=== PATIENT | male | born 1945 | race Hispanic/Latino ===

== ENCOUNTER → 2021-04-11 | Outpatient (CLI) | payer OTHER, MEDICARE | END | disposition home or self-care (01) | LOC: RAH 10:38 | PROVIDERS: ATTEND Family Medicine | DX: M48.062 Spinal stenosis, lumbar region with neurogenic claudication (principal); M47.26 Other spondylosis with radiculopathy, lumbar region; M43.5X6 Other recurrent vertebral dislocation, lumbar region | CPT/HCPCS: 72148 ==

== ENCOUNTER 2021-11-20 10:18 | Emergency (ER) | payer OTHER, MEDICARE ==
[~2021-11-20] VITALS: Ht 165.1 cm; Wt 97.5 kg
[2021-11-20] MEDS ORDERED: OSEL75 PO (11:22)
[2021-11-20] MEDS ORDERED: ACET-66 PO (11:22)
[2021-11-20 11:36] VITALS: BP 122/78
== END 2021-11-20 11:35 | disposition home or self-care (01) ==
LOC: EDH 10:18
DX: J10.1 Influenza due to other identified influenza virus with other respiratory manifestations (principal); Z20.822 Contact with and (suspected) exposure to COVID-19; E11.9 Type 2 diabetes mellitus without complications; E78.00 Pure hypercholesterolemia, unspecified; I10 Essential (primary) hypertension; I25.2 Old myocardial infarction
CPT/HCPCS: 99284; 71045; 87635; 87804 ×2; C9803

== ENCOUNTER 2022-02-19 12:05 | Emergency (ER) | payer OTHER, MEDICARE ==
[~2022-02-19] VITALS: Ht 165.1 cm; Wt 99.8 kg
[~2022-02-19 12:05] MED LIST: ACET-66 PO; OSEL75 PO
[2022-02-19] MEDS ORDERED: IBUPROFEN 600 MG TABLET PO ONE (13:00)
[2022-02-19] MEDS ORDERED: ACET-66 PO (14:14)
[2022-02-19 14:19] VITALS: BP 123/71
== END 2022-02-19 14:30 | disposition home or self-care (01) ==
LOC: EDH 12:05
DX: S93.402A Sprain of unspecified ligament of left ankle, initial encounter (principal); F41.9 Anxiety disorder, unspecified; I25.10 Atherosclerotic heart disease of native coronary artery without angina pectoris; E11.9 Type 2 diabetes mellitus without complications; I10 Essential (primary) hypertension; E03.9 Hypothyroidism, unspecified; I21.9 Acute myocardial infarction, unspecified; Z98.890 Other specified postprocedural states; W01.0XXA Fall on same level from slipping, tripping and stumbling without subsequent striking against object, initial encounter; Y93.01 Activity, walking, marching and hiking; Y92.098 Other place in other non-institutional residence as the place of occurrence of the external cause; Y99.8 Other external cause status
CPT/HCPCS: 73590; 73610

== ENCOUNTER → 2023-06-30 | Outpatient (CLI) | payer OTHER, MEDICARE ==
[2023-06-30] MEDS: REGADENOSON 0.4 MG/5 ML PF SYG IVP ONE (15:13)
== END | disposition home or self-care (01) ==
LOC: SHCH 08:35
PROVIDERS: ATTEND Internal Medicine Cardiovascular Disease
DX: I45.10 Unspecified right bundle-branch block (principal); I25.119 Atherosclerotic heart disease of native coronary artery with unspecified angina pectoris
CPT/HCPCS: 78452; 96374; 93017; J2785; A9500 ×2

== ENCOUNTER → 2023-07-24 | Outpatient (CLI) | payer OTHER, MEDICARE ==
[2023-07-24 12:20] LABS: BASOPHILS # (AUTO) 0.06 K/uL (0.00-0.20); BASOPHILS % (AUTO) 0.9 % (0.0-5.0); EOSINOPHILS # (AUTO) 0.23 K/uL (0.00-0.70); EOSINOPHILS % (AUTO) 3.6 % (0.0-8.0); HEMATOCRIT 39.5 % (42-54); IMMATURE GRANULOCYTE ABSOLUTE 0.01 K/uL (0-1); LYMPHOCYTES # (AUTO) 1.6 K/uL (1.0-4.8); LYMPHOCYTES % (AUTO) 25.8 % (21.0-51.0); MEAN CORPUSCULAR HEMOGLOBIN 32.1 pg (27.0-33.0); MEAN CORPUSCULAR HGB CONC 34.4 g/dL (32.0-36.0); MEAN CORPUSCULAR VOLUME 93.2 fL (79-99); MONOCYTES # (AUTO) 0.5 K/uL (0.1-1.0); MONOCYTES % (AUTO) 7.7 % (3.0-13.0); NEUTROPHILS # (AUTO) 3.9 K/uL (1.8-7.7); NEUTROPHILS % (AUTO) 61.8 % (40.0-77.0); PLATELET COUNT (AUTO) 113 K/uL (130-400); RED BLOOD CELL COUNT(AUTO) 4.24 MIL/uL (4.50-6.20); RED CELL DISTRIBUTION WIDTH 13.1 % (11.0-15.5); WHITE BLOOD COUNT (AUTO) 6.4 K/uL (4.8-10.8)
== END | disposition home or self-care (01) ==
LOC: LAB 10:20
PROVIDERS: ATTEND Internal Medicine Cardiovascular Disease
DX: D69.6 Thrombocytopenia, unspecified (principal)
CPT/HCPCS: 36415; 85025

== ENCOUNTER 2024-01-14 14:00 | Emergency (ER) | payer OTHER, MEDICARE ==
[~2024-01-14] VITALS: Ht 165.1 cm; Wt 98.4 kg
--- NOTE | 2024-01-14 14:21 | ERN ---
ED Note History of Present Illness Stated Complaint: ANXIETY ATTACK Chief Complaint: Anxiety/Panic Attack Time Seen by MD: 14:16 Dictation: PATIENT IS A 78-YEAR-OLD MALE HERE WITH A KNOWN HISTORY OF HYPERTENSION CHOLESTEROL CAD COMPLAINING OF ANXIETY RESOLVED CHEST PAIN HE HAD EARLIER THIS MORNING AND SHORTNESS A BREATH. PER EMS THEY [id number] OF ASPIRIN PATIENT WAS SATTING 90% ON ROOM AIR, NOW SATTING 95 96% ON2 L PER NASAL CANNULA. PATIENT STATES HE HAS NO PAIN AT THIS TIME. STATES HE HAS HAD TWO PRIOR MIS, IS PENDING A HEART CATHETERIZATION BY DR. CHAVEZ IN JANUARY. Allergies: Coded Allergies: No Known Allergies (Unverified Allergy, Unknown, 11/20/21) Home Meds Active Scripts Acetaminophen (Tylenol) 500 Mg Tab, 500 MG PO Q4PRN PRN for PAIN, #30 TAB Prov:DIMITRIS RUBY 02/19/22 Acetaminophen (Tylenol) 500 Mg Tab, 500 MG PO Q6HPRN PRN for pain/fever for 5 Days, #30 TAB Prov:MARTHA ORTIZ MD 11/20/21 Oseltamivir Phosphate (Tamiflu) 75 Mg Cap, 75 MG PO BID for 5 Days, #10 CAP Prov:MARTHA ORTIZ MD 11/20/21 Past Medical History Past Medical History: Diabetes-Type II, High Cholesterol, Heart Disease, [place] Additional Past Medical Hx: THYROID DISEASE, Surgical History: Other Surgical History Other: THYROIDECTOMY AND PENILE SURGERY Family History: CAD Social History: Negative RN Note Reviewed/Agreed w/PFSH: Yes Review of System Dictation CONSTITUTIONAL: NEGATIVE EXCEPT FOR HPI HEAD/FACE: NEGATIVE EXCEPT FOR HPI EENT: NEGATIVE EXCEPT FOR HPI RESPIRATORY: NEGATIVE EXCEPT FOR HPI SHORTNESS A BREATH/CHEST PAIN GASTROINTESTINAL/ABDOMINAL: NEGATIVE EXCEPT FOR HPI GENITOURINARY: NEGATIVE EXCEPT FOR HPI MUSCULOSKELETAL: NEGATIVE EXCEPT FOR HPI INTEGUMENTARY: NEGATIVE EXCEPT FOR HPI NEUROLOGICAL/PSYCH: NEGATIVE EXCEPT FOR HPI HEMATOLOGIC/LYMPHATIC: NEGATIVE EXCEPT FOR HPI ALL SYSTEMS NEGATIVE, EXCEPT NOTED ABOVE. 13 POINT REVIEW OF SYSTEMS ASSESSED AND ALL NEGATIVE EXCEPT FOR ABOVE. Initial Vital Sign VS Vital Signs Date Time Temp Pulse Resp B/P (MAP) Pulse Ox O2 Delivery O2 Flow Rate FiO2 01/14/24 14:09 97.5 71 18 95/55 98 Nasal Cannula 2.0 01/14/24 16:35 21 Physical Exam Dictation VITAL SIGNS REVIEWED GENERAL APPEARANCE: ALERT, ORIENTED X 3, MILD ACUTE DISTRESS, WELL DEVELOPED, NOURISHED. HEAD AND FACE: NON-TRAUMATIC. EYES: PERRL, PINK CONJUNCTIVAS, EYELID NO TRAUMA, ANTERIOR CHAMBER WITH ARCUS SENILIS. EARS: PINNAS INTACT AND NO SIGNS OF TRAUMA OR ERYTHEMA EAR CANALS CLEAR AND NO DISCHARGE TM NO ERYTHEMA NOSE: NO DISCHARGE, NO BLEEDING. OROPHARYNX: MOUTH NORMAL, TONGUE PINK, PHARYNX CLEAR,NO ERYTHEMA, TONSILS NO EXUDATES, NO ABSCESSES NOTED, MUCOUS MEMBRANE MOIST NECK: SUPPLE, NON-TENDER, NO THYROMEGALY, NO MASSES, NO JVD, NO BRUITS BREAST:DEFERRED CHEST:NO TENDERNESS, NO CREPITUS, NO PARADOXICAL MOVEMENT, NO RETRACTIONS LUNGS:CLEAR, WELL-VENTILATED, SYMMETRIC, NO RALES, NO WHEEZING, NO RHONCHI, NO STRIDOR, GOOD BREATH SOUNDS BILATERALLY HEART: TRACE PERIPHERAL EDEMA LOWER EXTREMITIES TO ANKLE PERIPHERAL EDEMA, ABDOMEN: SOFT, POSITIVE BOWEL SOUNDS, NONDISTENDED, NO GUARDING, NONTENDER, NO REBOUND, NO MASSES NO HEPATOMEGALY, NO SPLENOMEGALY, NO PICKARD'S SIGN, NO HERNIAS. RECTAL: DEFERRED GENITAL: DEFERRED NEUROLOGICAL: NORMAL SPEECH, MOTOR FUNCTION INTACT, SENSORY FUNCTION INTACT MUSCULOSKELETAL: NECK NONTENDER, FULL RANGE OF MOTION, BACK NONTENDER, FULL RANGE OF MOTION, EXTREMITIES: NONTENDER, FULL RANGE OF MOTION SKIN: COLOR PINK, DRY, NO TURGOR, NO RASH, NO LACERATIONS, NO ABRASIONS, NO CONTUSIONS. LYMPHATIC: DEFERRED Results (Laboratory/Radiology) Laboratory/Radiology Laboratory Tests Test 01/14/24 14:33 01/14/24 15:24 SARS-CoV-2 Antigen (Rapid) PRESUMPTIVE NEGATIVE White Blood Count 8.4 K/uL (4.8-10.8) Red Blood Count 4.10 MIL/uL (4.50-6.20) L Hemoglobin 13.2 g/dL (14.0-18.0) L Hematocrit 38.3 % (42-54) L Mean Corpuscular Volume 93.4 fL (79-99) Mean Corpuscular Hemoglobin 32.2 pg (27.0-33.0) Mean Corpuscular Hemoglobin Concent 34.5 g/dL (32.0-36.0) Red Cell Distribution Width 13.2 % (11.0-15.5) Platelet Count 95 K/uL (130-400) L Mean Platelet Volume 11.5 fL (7.5-10.5) H Immature Granulocyte % (Auto) 0.4 % (0-1) Neutrophils (%) (Auto) 70.2 % (40.0-77.0) Lymphocytes (%) (Auto) 18.5 % (21.0-51.0) L Monocytes (%) (Auto) 9.0 % (3.0-13.0) Eosinophils (%) (Auto) 1.3 % (0.0-8.0) Basophils (%) (Auto) 0.6 % (0.0-5.0) Neutrophils # (Auto) 5.9 K/uL (1.8-7.7) Lymphocytes # (Auto) 1.6 K/uL (1.0-4.8) Monocytes # (Auto) 0.8 K/uL (0.1-1.0) Eosinophils # (Auto) 0.11 K/uL (0.00-0.70) Basophils # (Auto) 0.05 K/uL (0.00-0.20) Absolute Immature Granulocyte (auto 0.03 K/uL (0-1) Nucleated Red Blood Cells 0.0 % (0.0-0.19) Sodium Level 138 mmol/L (136-145) Potassium Level 3.5 mmol/L (3.5-5.1) Chloride Level 103 mmol/L (101-111) Carbon Dioxide Level 29 mmol/L (21-32) Blood Urea Nitrogen 16 mg/dL (7-18) Creatinine 1.2 mg/dL (0.5-1.3) Glomerular Filtration Rate Calc 62 mL/min (>90) Random Glucose 100 mg/dL (70-105) Total Calcium 8.4 mg/dL (8.5-10.1) L Magnesium Level 2.10 mg/dL (1.80-2.40) Troponin I High Sensitivity 23 ng/L (4-75) B-Type Natriuretic Peptide 17 pg/mL (0-100) CHEST 1VW REASON: SHORTNESS A BREATH COMPARISON: 11/20/2021 FINDINGS: Single view of the chest was obtained. Lungs are clear. Heart size is normal. There is no pulmonary vascular congestion. Mediastinum and bony thorax appear unremarkable. IMPRESSION: 1. Normal single view chest x-ray. Labs Reviewed?: Yes EKG Comment: SINUS RHYTHM/RIGHT BUNDLE BRANCH BLOCK/AXIS NORMAL/NO ECTOPY ED Course ED Course Orders Procedure Category Date Status Time Covid19 (Sars Antigen LAB 01/14/24 Complete Rapid) 14:19 Cbc With Differential LAB 01/14/24 Complete 14:19 B-Type Natriuretic LAB 01/14/24 Complete Peptide 14:19 Chest 1vw RAD 01/14/24 Resulted 14:19 12 Lead Ekg Tracing- EKG 01/14/24 Logged Technical 14:19 Magnesium LAB 01/14/24 Complete 14:19 Troponin I High LAB 01/14/24 Complete Sensitivity 14:19 Basic Metabolic Panel LAB 01/14/24 Complete 14:19 Vital Signs Date Time Temp Pulse Resp B/P (MAP) Pulse Ox O2 Delivery O2 Flow Rate FiO2 01/14/24 16:35 98.1 60 18 96/48 97 Room Air* 0 21 01/14/24 14:09 97.5 71 18 95/55 98 Nasal Cannula 2.0 1725, CARDIAC WORKUP IS NEGATIVE, CHEST X-RAY NEGATIVE. WE WILL DISCHARGE PATIENT HOME WITH A ANXIETY REACTION TOLD TO FOLLOW UP WITH HIS DOCTOR IN 1-2 HEART Score Response (Comments) Value Age: > 65yrs (+2) 2 Risk Factors: 1-2 risk factors (+1) 1 Initial Troponin: Normal limit (0) 0 Total 3 Medical Decision Making MDM MDM: DIFFERENTIAL DIAGNOSIS: ACS/AMI/PANIC ATTACK/ANXIETY/PNEUMONIA/BRONCHITIS RATIONALE: TESTS CONSIDERED AND ORDERED SECONDARY TO SHARED DECISION MAKING INCLUDE: EKG/LABS/RADIOLOGY PREVIOUS OUTSIDE RECORDS REVIEWED: OLD ER VISITS. NONE RISK OF COMPLICATION AND/OR MORBIDITY OR MORTALITY OF PATIENT MANAGEMENT: NONE NONE MEDICATIONS-PER MEDICATION RECONCILIATION NEED FOR HOSPITALIZATION: PATIENT DOES NOT MEET CRITERIA FOR HOSPITALIZATION. NO NEED FOR EMERGENCY MAJOR/MINOR SURGERY: NO THERE ARE NO SOCIAL CONCERNS WITH THIS PATIENT. PRESCRIPTION DRUG MANAGEMENT NONE PRESCRIPTIONS WILL INCLUDE SYMPTOMATIC CARE PATIENT'S PRIOR EXTERNAL MEDICAL RECORDS FROM OTHER ER VISITS WERE REVIEWED BY ME INDICATED. PRIOR TESTING AND RESULTS FROM PREVIOUS VISITS WERE REVIEWED. PRIOR TESTS WERE TAKEN INTO ACCOUNT WITH MEDICAL DECISION MAKING AND RESOURCE UTILIZATION, INDEPENDENT HISTORIAN/HISTORIANS WERE USED TO OBTAIN COMPLETE MEDICAL HISTORY. I INDEPENDENTLY INTERPRETED THE TEST THAT WERE PERFORMED, RESULTS WERE REVIEWED BY ME AND CONSIDERED FINDINGS ON RADIOLOGY IF ORDERED. MEDICAL MANAGEMENT AND EXAMINATION INTERPRETATION DISCUSSIONS WERE HAD BY ME WITH OTHER QUALIFIED HEALTHCARE PROFESSIONALS INDICATED FOR THE PATIENT'S CARE. DX & DISP Disposition: Discharge Departure Impression: Primary Impression: Panic attack Condition: Stable Additional Instructions: FOLLOW-UP WITH PRIMARY CARE PROVIDER IN 1 TO 2 DAYS. TAKE MEDICATIONS DIRECTED HERE IN THE EMERGENCY ROOM. OKAY TO CONTINUE HOME MEDICATIONS UNLESS OTHERWISE DISCUSSED DURING YOUR VISIT IN THE EMERGENCY ROOM TODAY. RETURN TO YOUR NEAREST EMERGENCY ROOM IF SYMPTOMS WORSEN OR IF THERE IS NO IMPROVEMENT. CALL 911 IF YOU NEED IMMEDIATE ASSISTANCE. TAKE TYLENOL OR MOTRIN AMMG-SOD-DSJOZTS NEEDED AND IF NO CONTRAINDICATIONS ARE PRESENT. INCREASE ORAL HYDRATION. A WOUND CULTURE OR URINE CULTURE WAS ORDERED HERE IN THE EMERGENCY ROOM DEPARTMENT PLEASE FOLLOW-UP WITH PRIMARY CARE PROVIDER AND ADVISE THEM TO GET REPEAT PORTS FROM OUR FACILITY. IF YOU HAD ANY AURY WRAP/SPLINTS THAT WERE APPLIED HERE, PLEASE DO NOT REMOVE THEM UNTIL YOU SEE YOUR PRIMARY CARE OR SPECIALTY. CONTINUE ALL MEDICATIONS AND TREATMENTS AT HOME, SEE YOUR PRIMARY CARE DOCTOR FOR FOLLOW UP IN 1-2 DAYS. Referrals: YISEL ROBERTSON MD (PCP) Time of Disposition: 17:23 I have reviewed the case, and I agree with, Diagnosis and Plan MARYSOL ROLON NP Jan 14, 2024 14:21
[2024-01-14 15:32] LABS: BASOPHILS # (AUTO) 0.05 K/uL (0.00-0.20); BASOPHILS % (AUTO) 0.6 % (0.0-5.0); EOSINOPHILS # (AUTO) 0.11 K/uL (0.00-0.70); EOSINOPHILS % (AUTO) 1.3 % (0.0-8.0); HEMATOCRIT 38.3 % (42-54); IMMATURE GRANULOCYTE ABSOLUTE 0.03 K/uL (0-1); LYMPHOCYTES # (AUTO) 1.6 K/uL (1.0-4.8); LYMPHOCYTES % (AUTO) 18.5 % (21.0-51.0); MEAN CORPUSCULAR HEMOGLOBIN 32.2 pg (27.0-33.0); MEAN CORPUSCULAR HGB CONC 34.5 g/dL (32.0-36.0); MEAN CORPUSCULAR VOLUME 93.4 fL (79-99); MONOCYTES # (AUTO) 0.8 K/uL (0.1-1.0); NEUTROPHILS # (AUTO) 5.9 K/uL (1.8-7.7); NEUTROPHILS % (AUTO) 70.2 % (40.0-77.0); PLATELET COUNT (AUTO) 95 K/uL (130-400); RED CELL DISTRIBUTION WIDTH 13.2 % (11.0-15.5); WHITE BLOOD COUNT (AUTO) 8.4 K/uL (4.8-10.8)
[2024-01-14 15:41] LABS: CREATININE 1.2 mg/dL (0.5-1.3); POTASSIUM 3.5 mmol/L (3.5-5.1)
[2024-01-14 15:51] LABS: MAGNESIUM 2.1 mg/dL (1.80-2.40)
[2024-01-14 16:01] LABS: B-TYPE NATRIURETIC PEPTIDE 17 pg/mL (0-100)
--- NOTE | 2024-01-14 16:10 | HMCIMG ---
CHEST 1VW REASON: SHORTNESS A BREATH COMPARISON: 11/20/2021 FINDINGS: Single view of the chest was obtained. Lungs are clear. Heart size is normal. There is no pulmonary vascular congestion. Mediastinum and bony thorax appear unremarkable. IMPRESSION: 1. Normal single view chest x-ray.
[2024-01-14 17:50] VITALS: BP 96/48; PULSE 64; RESP 18; TEMP 98.1; O2SAT 95
--- NOTE | 2024-01-15 05:35 | EKG ---
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
== END 2024-01-14 18:05 | disposition home or self-care (01) ==
LOC: EDH 14:00
DX: F41.0 Panic disorder [episodic paroxysmal anxiety] (principal); E11.9 Type 2 diabetes mellitus without complications; E78.00 Pure hypercholesterolemia, unspecified; Z20.822 Contact with and (suspected) exposure to COVID-19; Z79.899 Other long term (current) drug therapy; Z90.89 Acquired absence of other organs; Z98.890 Other specified postprocedural states
CPT/HCPCS: 36415; 71045; 80048; 83735; 83880; 84484; 85025; 87426; 93005; 99285

== ENCOUNTER 2024-05-23 20:29 | Observation (INO) | payer OTHER, MEDICARE ==
[~2024-05-23] VITALS: Ht 165.1 cm; Wt 90.5 kg
[~2024-05-23 20:29] MED LIST changes: -ACET-66 PO; +CITA-108 PO; +ISOS60TA77 PO; +LEVO75CA6 PO; +LOSA1TAB54 PO; -OSEL75 PO; +ROSU10TA72 PO; +TAMS-55 PO
--- NOTE | 2024-05-23 20:50 | ERN ---
ED Note History of Present Illness Stated Complaint: CHEST PAIN Chief Complaint: Chest Pain Time Seen by MD: 20:37 Dictation: This is a 78-year-old male who presented to the emergency room complaining of left-sided chest pain that started around 2:00 p.m. today the pain radiates to t he neck jaw and back. He stated that it felt like cardiac pain to him and hence he came in for evaluation. No diaphoresis or syncope. Son at bedside during my evaluation Temperature 97.8 pulse 58 respirations 18 blood pressure 148/72 with a pulse oximetry of 97% on room air His chronic medical problems include diabetes mellitus, hypertension, hyperlipidemia, coronary artery disease status post stent placements, history of thyroid disease status post thyroidectomy Left heart catheterization-01/21/2024 Predominantly nonobstructive coronary disease with the exception of an 80% apical LAD stenosis. Moderate 60% mid LAD stenosis. 40% ostial nondominant left circumflex stenosis. 50% proximal RCA stenosis and 40% mid RCA stenosis, with 40% ostial PDA and posterolateral segment branch stenoses. Allergies: Coded Allergies: No Known Allergies (Unverified Allergy, Unknown, 11/20/21) Home Meds Active Scripts Losartan/Hydrochlorothiazide (Losartan-Hctz 100-25 mg Tab) 100 Mg-25 Mg Tablet, 0.5 TAB PO DAILY for 30 Days, #30 TAB 0 Refills Prov:CHHAYA ÁLVAREZ NAILER HAND 01/21/24 Reported Medications Citalopram Hydrobromide (Citalopram HBr) 40 Mg Tablet, 1 TAB PO DAILY for 30 Days, #30 TAB 0 Refills 01/20/24 Levothyroxine Sodium (Levothyroxine) 75 Mcg Capsule, 1 TAB PO DAILY for 30 Days, #30 CAP 0 Refills 01/20/24 Isosorbide Mononitrate (Isosorbide Mononitrate ER) 60 Mg Tab.er.24h, 1 TAB PO DAILY for 30 Days, #30 TAB 0 Refills 01/20/24 Rosuvastatin Calcium (Rosuvastatin Calcium) 10 Mg Tablet, 20 MG PO DAILY, TAB 01/20/24 Tamsulosin HCl (Flomax) 0.4 Mg Cap.er.24h, 1 CAP PO DAILY for 30 Days, #30 CAP 0 Refills 01/20/24 Past Medical History Past Medical History: Diabetes-Type II, High Cholesterol, Heart Disease, [place] Additional Past Medical Hx: THYROID DISEASE, Surgical History: Other Surgical History Other: THYROIDECTOMY AND PENILE SURGERY, CARDIAC STENTS Family History: CAD Social History: Negative RN Note Reviewed/Agreed w/PFSH: Yes Review of System Dictation Constitutional: Negative for fever,chills, and weight loss Eyes: Negative for injury, pain,redness, and discharge ENT: Negative for injury,pain or swelling Cardiovascular: Positive for chest pain, denies palpitations, and edema Respiratory: Positive for shortness of breath, denied cough, and wheezing, Abdomen/GI: Negative for abdominal pain, nausea, vomiting, diarrhea, and constipation Back: Negative for injury and pain : Negative for injury, bleeding and discharge MS/Extremity: Negative for injury and deformity Skin: Negative for rash, and discoloration Neuro: Negative for headache, weakness, numbness, tingling, and seizure Psych: Negative for suicide ideation, homicidal ideation, and hallucinations Initial Vital Sign VS Vital Signs Date Time Temp Pulse Resp B/P (MAP) Pulse Ox O2 Delivery O2 Flow Rate FiO2 05/23/24 20:31 97.9 58 18 148/72 97 Room Air 05/23/24 21:47 0 21 Physical Exam Dictation General: awake, alert, NAD hard of hearing Head/Face: Normocephalic, atraumatic Eyes: PERRL, EOMI, vision at baseline ENT: oral cavity clear, TMs clear, no signs of infection Neck: Trachea midline, supple, no nuchal rigidity Cardiovascular: RRR, normal S1/S2, No MRGs, no JVD Respiratory: CTAB, no respiratory distress, No rales or wheezes Abdomen: Soft, non-tender, non-distended, normal bowel sounds, no guarding or rebound. Skin: Warm, dry, normal turgor, no rash MS/Extremity: Pulses equal, no cyanosis, neurovascular intact, FROM Neuro: COAx4, GCS 15, strength 5/5, CN 2-12 intact, normal cerebellar exam, normal gait, Psych: Normal behavior, mood, and affect normal Extremities-trace edema without any palpable cords, Homans sign is negative Results (Laboratory/Radiology) Laboratory/Radiology Laboratory Tests Test 05/23/24 20:45 White Blood Count 7.2 K/uL (4.8-10.8) Red Blood Count 4.02 MIL/uL (4.50-6.20) L Hemoglobin 13.0 g/dL (14.0-18.0) L Hematocrit 38.4 % (42-54) L Mean Corpuscular Volume 95.5 fL (79-99) Mean Corpuscular Hemoglobin 32.3 pg (27.0-33.0) Mean Corpuscular Hemoglobin Concent 33.9 g/dL (32.0-36.0) Red Cell Distribution Width 12.5 % (11.0-15.5) Platelet Count 103 K/uL (130-400) L Mean Platelet Volume 11.4 fL (7.5-10.5) H Immature Granulocyte % (Auto) 0.6 % (0-1) Neutrophils (%) (Auto) 60.0 % (40.0-77.0) Lymphocytes (%) (Auto) 24.9 % (21.0-51.0) Monocytes (%) (Auto) 9.5 % (3.0-13.0) Eosinophils (%) (Auto) 4.2 % (0.0-8.0) Basophils (%) (Auto) 0.8 % (0.0-5.0) Neutrophils # (Auto) 4.3 K/uL (1.8-7.7) Lymphocytes # (Auto) 1.8 K/uL (1.0-4.8) Monocytes # (Auto) 0.7 K/uL (0.1-1.0) Eosinophils # (Auto) 0.30 K/uL (0.00-0.70) Basophils # (Auto) 0.06 K/uL (0.00-0.20) Absolute Immature Granulocyte (auto 0.04 K/uL (0-1) Nucleated Red Blood Cells 0.0 % (0.0-0.19) Sodium Level 143 mmol/L (136-145) Potassium Level 3.7 mmol/L (3.5-5.1) Chloride Level 107 mmol/L (101-111) Carbon Dioxide Level 27 mmol/L (21-32) Blood Urea Nitrogen 12 mg/dL (7-18) Creatinine 0.7 mg/dL (0.5-1.3) Glomerular Filtration Rate Calc 95 mL/min (>90) Random Glucose 102 mg/dL (70-105) Total Calcium 7.7 mg/dL (8.5-10.1) L Total Creatine Kinase 201 U/L (21-232) Troponin I High Sensitivity 32 ng/L (4-75) B-Type Natriuretic Peptide 104 pg/mL (0-100) H Labs Reviewed?: Yes EKG Comment: Twelve lead EKG done on 05/23/2024 at 8:35 p.m. showed a heart rate of 57, LA interval 177, QRS 135, QT/QTC 461/451 Impression normal sinus rhythm-sinus bradycardia right bundle branch block intraventricular conduction delay no acute STT elevations noted. Interpreted by ER MD Dr. Valentin ED Course ED Course Orders Procedure Category Date Status Time Vital Signs Per CPOE 05/23/24 Transmitted Routine 20:35 B-Type Natriuretic LAB 05/23/24 Complete Peptide 20:35 Chest 1vw RAD 05/23/24 Resulted 20:35 12 Lead Ekg Tracing- EKG 05/23/24 Logged Technical 20:35 Oxygen By Nc/Pulse Ox CPOE 05/23/24 Transmitted 20:35 Maintain Iv CPOE 05/23/24 Transmitted 20:35 Iv Insertion CPOE 05/23/24 Transmitted 20:35 Cardiac Monitoring CPOE 05/23/24 Transmitted 20:35 Pulse Oximetry With CPOE 05/23/24 Transmitted Vs And Prn 20:35 Cbc With Differential LAB 05/23/24 Complete 20:35 Activity: Br W/Brp CPOE 05/23/24 Transmitted With Assist 20:35 Creatine Kinase, Total LAB 05/23/24 Complete 20:35 Troponin I High LAB 05/23/24 Complete Sensitivity 20:35 Urinalysis Profile LAB 05/23/24 Logged 20:35 Basic Metabolic Panel LAB 05/23/24 Complete 20:35 0.9%Nacl 1000ml (Ns PHA 05/23/24 In Process 1000ml) 21:00 Nitroglycerin 0.4mg PHA 05/23/24 In Process Sl Tab (Nitrostat) 21:00 Acetaminophen 325 Tab PHA 05/23/24 Complete (Tylenol 325mg Tab 21:00 Aspirin 325mg Tab PHA 05/23/24 Complete (Aspirin 325mg Tab) 21:00 Admit Orders ADM 05/23/24 Transmitted 22:01 Cardiology Consult CONPHYSVC 05/24/24 Transmitted 08:00 Consistent Carb DIET 05/24/24 Transmitted Breakfast Basic Metabolic Panel LAB 05/24/24 Verified 04:00 Cbc With Differential LAB 05/24/24 Verified 04:00 Magnesium LAB 05/24/24 Verified 04:00 Phosphorus LAB 05/24/24 Verified 04:00 Troponin I High LAB 05/24/24 Verified Sensitivity 03:00 Troponin I High LAB 05/24/24 Verified Sensitivity 09:00 Troponin I High LAB 05/24/24 Verified Sensitivity 15:00 Urinalysis Profile LAB 05/23/24 Transmitted 22:06 Activity: Ad Irma CPOE 05/23/24 Transmitted 22:06 Condition: CPOE 05/23/24 Transmitted 22:06 Apply Scds CPOE 05/23/24 Transmitted 22:06 Apply Knee High Teds CPOE 05/23/24 Transmitted 22:06 Nurse To Enter Home CPOE 05/23/24 Transmitted Medication 22:06 Oxygen By Nc/Pulse Ox CPOE 05/23/24 Transmitted 22:06 Telemetry Monitoring CPOE 05/23/24 Transmitted 22:06 Vital Signs(Adult CPOE 05/23/24 Transmitted Hospitalist) 22:06 Aspirin 81mg Ec Tab PHA 05/24/24 Logged (Aspirin 81mg Ec Tab 09:00 Enoxaparin Sodium 40 PHA 05/24/24 Transmitted Mg/0.4 Ml (Lovenox) 09:00 Famotidine 20mg Tab PHA 05/24/24 Transmitted (Pepcid 20mg Tab) 09:00 Hydralazine 20mg Inj PHA 05/23/24 Transmitted (Apresoline 20mg In 22:30 Morphine 4mg Syg PHA 05/23/24 Transmitted (Morphine 4mg Syg) 22:30 Ondansetron 4mg Inj PHA 05/23/24 Transmitted (Zofran 4mg Inj) 22:30 Nitroglycerin 1gm PHA 05/23/24 Transmitted Oint (Nitroglycerin 1g 22:30 Clopidogrel 75mg Tab PHA 05/24/24 Transmitted (Plavix 75mg) 09:00 Atorvastatin 40mg PHA 05/24/24 Transmitted (Lipitor 40mg) 21:00 Edm Admit Bridge Order ADM 05/23/24 Verified 22:09 Current Medications Medications (Trade) Dose Ordered Sig/Brooks Route PRN Reason Start Time Stop Time Status Last Admin Dose Admin Acetaminophen (TYLenol 325MG TAB) 650 mg ONCE ONCE PO 05/23/24 21:00 05/23/24 21:01 DC 05/23/24 21:37 Aspirin (Aspirin 325mg Tab) 325 mg ONCE ONCE PO 05/23/24 21:00 05/23/24 21:01 DC 05/23/24 21:36 Nitroglycerin (Nitrostat) 0.4 mg Q5M PRN SL CHEST PAIN 05/23/24 21:00 05/23/24 21:37 Sodium Chloride 1,000 ml @ 125 mls/hr ONCE ONCE IV 05/23/24 21:00 05/24/24 04:59 05/23/24 21:36 Vital Signs Date Time Temp Pulse Resp B/P (MAP) Pulse Ox O2 Delivery O2 Flow Rate FiO2 05/23/24 21:47 98.8 59 18 122/59 97 Room Air* 0 21 05/23/24 20:31 97.9 58 18 148/72 97 Room Air We will perform diagnostic labs, advanced imaging and administer medications according to the patient's complaint. Once the results are available, will review and personally interpreted the labs to rule out any acute life- threatening emergency the trach require immediate intervention and treatment. I will then re-evaluate the patient after treatment and diagnostic exams have return to determine whether the patient requires any further testing, can safely be discharged home or need further admission to hospital for additional treatment and evaluation. 10:00 p.m. labs reviewed CBC showed a hemoglobin of 13 and platelet count of 103. BNP 7 is with a normal limits brain natriuretic peptide is 104. Troponins are unremarkable With multiple risk factors known coronary artery disease with stents, classic chest pain, I recommended admission to the hospital for further evaluation of the heart and the patient is agreeable. 10:10 p.m. patient accepted by [employer], mid-level provider for the hospitalist group for admission and further management HEART Score Response (Comments) Value History: Moderate suspicion (+1) 1 EKG: Repolarization changes 1 Age: > 65yrs (+2) 2 Risk Factors: 3+ risk factors (+2) 2 Initial Troponin: Normal limit (0) 0 HEART Score Risk: Mod Risk for MACE (4-6) Total 6 Medical Decision Making MDM MDM: Differential diagnosis: Chest pain-acute coronary syndrome, unstable angina, progressive coronary artery disease, esophagitis, musculoskeletal pain Rationale: Tests considered and ordered secondary to shared decision making include: labs, ECG and radiology Previous outside records reviewed: Old ER visits. Risk of complication and/or morbidity or mortality of patient management: None Medications-Per medication reconciliation Need for hospitalization: Patient does meet criteria for hospitalization. Need for emergency major/minor surgery: No There are no social concerns with this patient. Prescription drug management Prescriptions will include symptomatic care Patient's prior external medical records from other ER visits were reviewed by me as indicated. Prior testing and results from previous visits were reviewed. Prior tests were taken into account with medical decision making and resource utilization, independent historian/historians were used to obtain complete medical history. I independently interpreted the test that were performed, results were reviewed by me and considered findings on radiology if ordered. Medical management and examination interpretation discussions were had by me with other qualified healthcare professionals as indicated for the patient's care. Problem List Problem List: (1) Unstable angina (2) Diabetes mellitus (3) Hypercholesterolemia (4) Coronary artery disease (5) Hypothyroidism (6) Chronic idiopathic thrombocytopenia DX & DISP Disposition: Inpatient Decision to Admit Time: 20:50 Departure Impression: Primary Impression: Unstable angina Additional Impressions: Diabetes mellitus, Hypercholesterolemia, Coronary artery disease, Hypothyroidism Condition: Stable Additional Instructions: Patient was informed of all the diagnostic labs and procedures conducted in the emergency room today and demonstrated understanding of the results. I personally reviewed and interpreted all the diagnostic exams performed in the ER today. The patient will be admitted to the hospital for further treatment and evaluation. Disposition-admit to facility Condition-stable/guarded Course-uncertain at this time Pain status-decreased Assessment-exam unchanged Admission Certification- I certify that the patients status is appropriate and is based on my best clinical judgment and the patient's condition as documented in the medical records Referrals: YISEL ROBERTSON MD (PCP) JONATHAN VALENTIN MD May 23, 2024 20:50
[2024-05-23 20:56] LABS: BASOPHILS # (AUTO) 0.06 K/uL (0.00-0.20); BASOPHILS % (AUTO) 0.8 % (0.0-5.0); EOSINOPHILS % (AUTO) 4.2 % (0.0-8.0); HEMATOCRIT 38.4 % (42-54); IMMATURE GRANULOCYTE ABSOLUTE 0.04 K/uL (0-1); LYMPHOCYTES # (AUTO) 1.8 K/uL (1.0-4.8); LYMPHOCYTES % (AUTO) 24.9 % (21.0-51.0); MEAN CORPUSCULAR HEMOGLOBIN 32.3 pg (27.0-33.0); MEAN CORPUSCULAR HGB CONC 33.9 g/dL (32.0-36.0); MEAN CORPUSCULAR VOLUME 95.5 fL (79-99); MONOCYTES # (AUTO) 0.7 K/uL (0.1-1.0); MONOCYTES % (AUTO) 9.5 % (3.0-13.0); NEUTROPHILS # (AUTO) 4.3 K/uL (1.8-7.7); PLATELET COUNT (AUTO) 103 K/uL (130-400); RED BLOOD CELL COUNT(AUTO) 4.02 MIL/uL (4.50-6.20); RED CELL DISTRIBUTION WIDTH 12.5 % (11.0-15.5); WHITE BLOOD COUNT (AUTO) 7.2 K/uL (4.8-10.8)
--- NOTE | 2024-05-23 20:57 | HMCIMG ---
CHEST 1VW CLINICAL HISTORY: CHEST PAIN COMPARISON: None TECHNIQUE: Single view of the chest was obtained. FINDINGS: Lungs are clear. The cardiac size and mediastinum are unremarkable. The bony structures stable. IMPRESSION: No acute cardiopulmonary process identified.
[2024-05-23 21:07] LABS: CREATININE 0.7 mg/dL (0.5-1.3); POTASSIUM 3.7 mmol/L (3.5-5.1)
[2024-05-23 21:35] LABS: B-TYPE NATRIURETIC PEPTIDE 104 pg/mL (0-100)
[2024-05-23] MEDS: ASPIRIN 325MG TAB PO ONE (21:36)
[2024-05-23] MEDS: 0.9%NACL 1000ML 1,000 ML IV ONE (21:36)
[2024-05-23] MEDS: NITROGLYCERIN 0.4 MG SL TAB SL PRN (21:37)
[2024-05-23] MEDS: acetaMINOPHEN 325 MG TAB PO ONE (21:37)
--- NOTE | 2024-05-23 22:02 | HP ---
History of Present Illness Reason for Visit: chest pain History of Present Illness Mr. Jiang is a 78-year-old male who was seen and examined today on 05/24/2024. Patient is a good historian of personal health. Patient's son Michael is at bedside. Patient states he came to the emergency department with a chief complaint of chest pain. Onset was today at 3:00 p.m.. Location is left pectoral area. Duration is on and off. Patient reports eight episodes that were 5-10 seconds each. Character is described as pulsing pain. There was no alleviating factors. There was no aggravating factors. Patient denies any associated shortness of breath or dizziness. Patient had a heart catheterization on 05/2023 and was diagnosed with nonobstructive CAD except for LAD which had an 80% blockage recommendation from Cardiology at that time was for medical management and four follow up although patient states he has not had an opportunity to follow up. Today in the emergency department CBC unremarkable, calcium 7.7, no urinalysis has been collected or sent to lab, chest x-ray is unremarkable. Past Medical History Patient History: Carcinomas FATHER (prostate cancer) ADDITIONAL PAST MEDICAL HISTORY: [Hypertension, hyperlipidemia, nonobstructive CAD, Diabetes mellitius type2, hypothyroidism] SOCIAL HISTORY: [Patient quit smoking 20 years ago. Patient drinks alcohol about 2 times a week usually eight beers that are 12 oz each. Patient denies drug use. Patient lives with the son, Michael Jiang. Patient is typically independent of all his ADLs. Patient has good access to health care through his insurance. Patient denies difficulty pain is bills. 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 SURGICAL HISTORY: [Thyroidectomy, heart catheterization, circumcision] Review of Systems General: No Fever, No Chills, No Night Sweats, No Fatigue, No Malaise, No Appetite, No Other HEENT: No Head Aches, No Visual Changes, No Eye Pain, No Ear Pain, No Dysphasia, No Sinus Congestion, No Post Nasal Drip, No Sore Throat, No Other Pulmonary: No Dyspnea, No Cough, No Pleuritic Chest Pain, No Other Cardiovascular: Chest Pain; No: Palpitations, Orthopnea, Paroxysmal Noc. Dyspnea, Edema, Lt Headedness, Other Gastrointestinal: No: Nausea, Vomiting, Abdominal Pain, Diarrhea, Constipation, Melena, Hematochezia, Other Genitourinary: No Dysuria, No Frequency, No Incontinence, No Hematuria, No Retention, No Other Musculoskeletal: No: other, neck pain, shoulder pain, arm pain, back pain, hand pain, leg pain, foot pain Skin: No Urticaria, No Rash, No Other Neurological: No: Weakness, Numbness, Incoordination, Change in speech, Confusion, Seizures, Other Allergies: Coded Allergies: No Known Allergies (Unverified Allergy, Unknown, 11/20/21) Scheduled Citalopram Hydrobromide (Citalopram HBr), 1 TAB PO DAILY, (Reported) Isosorbide Mononitrate (Isosorbide Mononitrate ER), 1 TAB PO DAILY, (Reported) Levothyroxine Sodium (Levothyroxine), 1 TAB PO DAILY, (Reported) Losartan/Hydrochlorothiazide (Losartan-Hctz 100-25 mg Tab), 0.5 TAB PO DAILY Rosuvastatin Calcium (Rosuvastatin Calcium), 20 MG PO DAILY, (Reported) Tamsulosin HCl (Flomax), 1 CAP PO DAILY, (Reported) Exam Vital Signs Vital Signs Date Time Temp Pulse Resp B/P (MAP) Pulse Ox O2 Delivery O2 Flow Rate FiO2 05/23/24 21:47 98.8 59 18 122/59 97 Room Air* 0 21 General Appearance: Alert, Oriented X3, Cooperative, No acute distress HEENT: Atraumatic, EOMI, Mucous membr. moist/pink Respiratory: Clear to auscultation, Normal air movement, NL respiratory effort Cardiovascular: Regular rate, Regular rhythm, Normal S1, Normal S2 Abdominal: Normal bowel sounds, Soft, No tenderness Extremities: No edema Skin: No significant lesion Neuro: Normal speech, Sensation intact, Cranial nerves 3-12 NL Psych/Mental Status: Mental status NL, Mood NL, Thoughts/Content NL Assessment/Plan ASSESSMENT: [ Chest pain, POA Hypocalcemia, POA Hypertension Hyperlipidemia CAD Diabetes mellitius type2 Hypothyroidism] PLAN: [ Admit patient to medical floor as inpatient status. Place patient on telemetry monitoring. Chest pain: Administer aspirin 325 mg by mouth times 1 dose Continue aspirin 81 mg by mouth once daily Nitropaste 0.5 inches anterior chest wall every 8 hours Plavix 75 mg by mouth once daily Atorvastatin 40 mg by mouth once daily Trend troponin every 6 hours x 3 sets Supplemental oxygen to maintain O2 saturation greater than 92% Consult cardiology if any elevation in troponin or troponin uptrending Hypocalcemia: Start calcium carbonate 500 mg by mouth twice daily. Diabetes mellitus type 2: Check hemoglobin A1c in a.m. Glucometer checks a.c. and HS 1800 ADA diet Humulin R sliding scale Hypothyroidism, hypertension, hyperlipidemia: Check TSH in a.m. Consider resuming home medications once they have been reconciled For now, Hydralazine 10 mg IV every 4 hours for systolic blood pressure greater than 160 mmHg GI prophylaxis, famotidine DVT prophylaxis, Lovenox ADVANCED CARE PLANNING 1. Which of the following were discussed? Hospice Care - Yes Therapeutic options - Yes Advance Directives - Yes -patient states that he does not have any advance directives in place at this time, however his son Michael can make decisions for him if he becomes unable. Other discussions - patient wishes to remain a full code at this time 2. Discussed with who? Patient 3. Voluntary nature of this service was explained to the patient? Yes 4. Amount of time spent - ___ 16 minutes ____ 5. Reviewed by Physician? (if this service was performed by NPP) Yes This document was generated in part using voice recognition software, occasional wrong word or sound alike substitutions may have occurred due to the inherent limitations of voice recognition software. Read the chart carefully and recognize using context, where the substitutions have occurred. Although every effort was made to edit the content, deblocker and typing errors may occur ATTESTATION BY PHYSICIAN I have seen and examined the patient. I reviewed the documentation, medical decision making, and treatment plan as noted by the mid-level provider above. I agree with the findings and plan of care. MALVIN [facility] May 23, 2024 22:02
[2024-05-23] MEDS ORDERED: ondanSETRON 4MG INJ IV PRN (22:30)
[2024-05-23] MEDS ORDERED: morPHINE 2 MG SYG IVP PRN (22:30)
[2024-05-23] MEDS ORDERED: hydrALAZine 20MG/ML VIAL IV PRN (22:30)
[2024-05-23] MEDS: NITROGLYCERIN 1GM OINT 1 INCH/1GM TD SCH (22:45)
[2024-05-23 23:00] VITALS: BP 144/75; PULSE 57; RESP 20; TEMP 97.5; O2SAT 98
[2024-05-23 23:28] LABS: APPEARANCE,URINE CLEAR (CLEAR); BILIRUBIN,URINE NEGATIVE (NEGATIVE); COLOR,URINE COLORLESS (YELLOW); GLUCOSE, URINE (UA) NEGATIVE (NEGATIVE); KETONES,URINE NEGATIVE (NEGATIVE); LEUKOCYTE ESTERASE ,URINE NEGATIVE Leu/uL (NEGATIVE); NITRATE,URINE NEGATIVE (NEGATIVE); OCCULT BLOOD,URINE NEGATIVE (NEGATIVE); PROTEIN,URINE NEGATIVE (NEGATIVE); UROBILINOGEN,URINE 0.2 mg/dL (0.2-1.0)
[2024-05-23 23:29] LABS: ADD UA MICROSCOPIC NO
[2024-05-24] MEDS ORDERED: SPIR25TA6 PO (00:48)
[2024-05-24 03:56] VITALS: BP 118/71; PULSE 54; RESP 16; TEMP 97.4
[2024-05-24 06:21] LABS: BASOPHILS # (AUTO) 0.04 K/uL (0.00-0.20); BASOPHILS % (AUTO) 0.9 % (0.0-5.0); EOSINOPHILS # (AUTO) 0.29 K/uL (0.00-0.70); EOSINOPHILS % (AUTO) 6.5 % (0.0-8.0); HEMATOCRIT 35.9 % (42-54); IMMATURE GRANULOCYTE ABSOLUTE 0.03 K/uL (0-1); LYMPHOCYTES # (AUTO) 1.4 K/uL (1.0-4.8); LYMPHOCYTES % (AUTO) 32.4 % (21.0-51.0); MEAN CORPUSCULAR HEMOGLOBIN 33.2 pg (27.0-33.0); MEAN CORPUSCULAR HGB CONC 34.5 g/dL (32.0-36.0); MONOCYTES # (AUTO) 0.5 K/uL (0.1-1.0); MONOCYTES % (AUTO) 10.8 % (3.0-13.0); NEUTROPHILS # (AUTO) 2.2 K/uL (1.8-7.7); NEUTROPHILS % (AUTO) 48.7 % (40.0-77.0); PLATELET COUNT (AUTO) 83 K/uL (130-400); RED BLOOD CELL COUNT(AUTO) 3.74 MIL/uL (4.50-6.20); RED CELL DISTRIBUTION WIDTH 12.7 % (11.0-15.5); WHITE BLOOD COUNT (AUTO) 4.4 K/uL (4.8-10.8)
[2024-05-24 06:27] LABS: HEMOGLOBIN A1C 5.8 % (4.0-6.0)
[2024-05-24] MEDS: INSULIN humuLIN R 100 UNIT/ML 3ML SQ SCH (06:36)
[2024-05-24 06:47] LABS: CREATININE 0.7 mg/dL (0.5-1.3); PHOSPHORUS 4.1 mg/dL (2.5-4.9); POTASSIUM 3.8 mmol/L (3.5-5.1); THYROID STIMULATING HORMONE 0.05 uIU/mL (0.36-3.74)
[2024-05-24] MEDS: cloPIDOgrel 75MG TAB PO SCH (07:54)
[2024-05-24] MEDS: CALCIUM CARB 500MG CHEW TAB PO SCH (07:54)
[2024-05-24] MEDS: FAMOTIDINE 20MG TAB PO SCH (07:54)
[2024-05-24] MEDS: ASPIRIN 81 MG EC TAB PO SCH (07:54)
--- NOTE | 2024-05-24 07:55 | EKG ---
[facility] Test Date: 2024-05-23 Test Time: 20:35:35 Pat Name: ANGELA CANCINO Department: [facility] Room: 302 1 Gender: M Table Operator: [id number] : 1945 Requested By: JONATHAN DIETRICH Order Number: [id number] Reading MD: Luana Turner Measurements Intervals [place] Rate: 57 P: 37 SD: 177 QRS: 41 QRSD: 135 T: 33 QT: 461 QTc: 451 Interpretive Statements Sinus rhythm Right bundle branch block Compared to ECG 01/20/2024 14:09:44 No significant changes Electronically Signed On 05-24-2024 12:27:06 CDT by Luana Turner Please click the below link to view image of tracing.
[2024-05-24 08:00] VITALS: BP 141/76; PULSE 50; RESP 18; TEMP 97.5; O2SAT 94
[2024-05-24] MEDS: ENOXAPARIN SODIUM 40 MG/0.4 ML SYRINGE SQ SCH (09:00)
--- NOTE | 2024-05-24 09:48 | PN ---
[facility] PROGRESS NOTE Date of Service: May 24, 2024 Time of Service: 09:38 SUBJECTIVE: [ ] This is a 78-year-old male that was admitted yesterday for six 2024 with chief complaints of chest pain radiates to mid back. The patient has a history of AR a year ago. Film Reader's consulted we will follow recommendations.\ Patient was seen patient appears to be in no distress. We will wait for reimbursement consultant's final recommendations echo will be done. REVIEW OF SYSTEMS CONSTITUTIONAL: Denies fevers, chills, or night sweats. No unintentional weight loss reported. NEUROLOGICAL: Denies headache, amaurosis fugax, motor weakness, sensory deficit, vertigo/spinning sensation, gait abnormalities, or tremors. ENT: No hearing loss, otalgia, otorrhea, rhinitis, rhinorrhea, hoarseness, or sore throat. CARDIOVASCULAR: Denies any exertional angina, dyspnea on exertion, orthopnea, paroxysmal nocturnal dyspnea, palpitations, life-threatening arrhythmias, claudication. PULMONARY: Denies any shortness of breath, cough, phlegm/sputum, hemoptysis, pleuritic chest pain. SLEEP: Denies morning headaches, daytime somnolence or napping. Denies difficulty falling asleep, staying asleep, waking from sleep. Denies knowledge of snoring. GASTROINTESTINAL: Denies any type of dysphagia to either liquids or solids. Denies nausea, vomiting, pyrosis, early satiety, abdominal pain, diarrhea, constipation, or changes in stool consistency or caliber. Denies coffee-ground emesis, hematemesis, hematochezia, or melanotic stools. GENITOURINARY: Denies frequency, urgency, nocturia, hematuria or incontinence (Storage/Irritative symptoms.) Low urinary stream, straining to void, urinary intermittency or hesitancy, splitting of the voiding stream, terminal dribbling. ENDOCRINOLOGIC: Denies polyuria, polydipsia, polyphagia or heat/cold intolerances. HEMATOLOGIC: Denies thrombophilia/previous clots, or coagulopathy/bleeding disorders. ONCOLOGIC: Denies personal history of malignancy. DERMATOLOGIC: Denies rashes or pruritus. PSYCHIATRIC: Denies any suicidal or homicidal ideation. Denies hallucinations. PHYSICAL EXAM GENERAL APPEARANCE: The patient is awake, alert, and oriented, in no acute cardiopulmonary distress. NEUROLOGICAL: Cranial nerves II-XII grossly intact. Motor is 5/5 in bilateral upper and lower extremities proximal to distal. No sensory deficits. HEENT: Face is symmetric. Pupils are equal and reactive. Extraocular movements are intact. NECK: Supple. No JVD. No thyromegaly. No submental, submandibular, pre-/postauricular, occipital or supraclavicular lymphadenopathy. CHEST: Normal chest expansion. No Telemetry. LUNGS: Absence of any rales, rhonchi or any wheezing. CARDIOVASCULAR: Regular. S1 and S2 normal. No appreciable rubs, murmurs or gallops. ABDOMEN: Soft, nontender, and nondistended. There is no rebound, voluntary guarding, or rigidity. : Deferred. No Brantley. EXTREMITIES: Non-edematous and not cyanotic. No clubbing. Good capillary refill. SKIN: No skin breakdown. Vital Signs (last 8hr) Date Time Temp Pulse Resp B/P (MAP) Pulse Ox O2 Delivery O2 Flow Rate FiO2 05/24/24 08:00 97.5 50 18 141/76 94 Room Air 05/24/24 03:56 97.3 54 16 118/71 97 Room Air LABS: Laboratory: Test 05/24/24 05:29 05/24/24 05:23 05/23/24 23:46 05/23/24 20:45 Range/Units White Blood Count 4.4 #L 4.8-10.8 K/uL Red Blood Count 3.74 L 4.50-6.20 MIL/uL Hemoglobin 12.4 L 14.0-18.0 g/dL Hematocrit 35.9 L 42-54 % Mean Corpuscular Volume 96.0 79-99 fL Mean Corpuscular Hemoglobin 33.2 H 27.0-33.0 pg Mean Corpuscular Hemoglobin Concent 34.5 32.0-36.0 g/dL Red Cell Distribution Width 12.7 11.0-15.5 % Platelet Count 83 L 130-400 K/uL Mean Platelet Volume 11.8 H 7.5-10.5 fL Immature Granulocyte % (Auto) 0.7 0-1 % Neutrophils (%) (Auto) 48.7 40.0-77.0 % Lymphocytes (%) (Auto) 32.4 21.0-51.0 % Monocytes (%) (Auto) 10.8 3.0-13.0 % Eosinophils (%) (Auto) 6.5 0.0-8.0 % Basophils (%) (Auto) 0.9 0.0-5.0 % Neutrophils # (Auto) 2.2 1.8-7.7 K/uL Lymphocytes # (Auto) 1.4 1.0-4.8 K/uL Monocytes # (Auto) 0.5 0.1-1.0 K/uL Eosinophils # (Auto) 0.29 0.00-0.70 K/uL Basophils # (Auto) 0.04 0.00-0.20 K/uL Absolute Immature Granulocyte (auto 0.03 0-1 K/uL Nucleated Red Blood Cells 0.0 0.0-0.19 % Sodium Level 143 136-145 mmol/L Potassium Level 3.8 3.5-5.1 mmol/L Chloride Level 110 101-111 mmol/L Carbon Dioxide Level 27 21-32 mmol/L Blood Urea Nitrogen 13 7-18 mg/dL Creatinine 0.7 0.5-1.3 mg/dL Glomerular Filtration Rate Calc 95 >90 mL/min Random Glucose 104 70-105 mg/dL Hemoglobin A1c 5.8 4.0-6.0 % Estimated Average Glucose (eAG) 120 70-126 mg/dL Total Calcium 7.6 L 8.5-10.1 mg/dL Phosphorus Level 4.1 2.5-4.9 mg/dL Magnesium Level 2.00 1.80-2.40 mg/dL Troponin I High Sensitivity 29 4-75 ng/L Thyroid Stimulating Hormone (TSH) 0.05 #L 0.36-3.74 uIU/mL Whole Blood Glucose 111 H 70-110 MG/DL Urine Color COLORLESS YELLOW Urine Appearance CLEAR CLEAR Urine pH 5.0 5.0-8.0 Urine Specific [place] 1.007 1.001-1.031 Urine Protein NEGATIVE NEGATIVE mg/dL Urine Glucose (UA) NEGATIVE NEGATIVE mg/dL Urine Ketones NEGATIVE NEGATIVE mg/dL Urine Occult Blood NEGATIVE NEGATIVE Urine Nitrate NEGATIVE NEGATIVE Urine Bilirubin NEGATIVE NEGATIVE mg/dL Urine Urobilinogen 0.2 0.2-1.0 mg/dL Urine Leukocyte Esterase NEGATIVE NEGATIVE Mt/uL Total Creatine Kinase 201 21-232 U/L B-Type Natriuretic Peptide 104 H 0-100 pg/mL Current Medications Medications (Trade) Dose Ordered Sig/Brooks Route PRN Reason Start Time Stop Time Status Last Admin Dose Admin Aspirin (Aspirin 81mg Ec Tab) 81 mg DAILY PO 05/24/24 09:00 06/23/24 08:59 05/24/24 07:54 81 MG Atorvastatin Calcium (LIPItor 40MG) 40 mg HS PO 05/24/24 21:00 06/23/24 20:59 Calcium Carbonate (Tums 500 Mg Chew Tab) 500 tab BID PO 05/24/24 09:00 06/23/24 08:59 05/24/24 07:54 1 TAB Clopidogrel Bisulfate (plaVIX 75MG) 75 mg DAILY PO 05/24/24 09:00 06/23/24 08:59 05/24/24 07:54 75 MG Enoxaparin Sodium (Lovenox) 40 mg DAILY SQ 05/24/24 09:00 06/23/24 08:59 Famotidine (Pepcid 20mg Tab) 20 mg DAILY PO 05/24/24 09:00 06/23/24 08:59 05/24/24 07:54 20 MG Hydralazine HCl (APRESOLine 20MG INJ) 10 mg Q6H PRN IV For:SBP above 160;DBP above 90 05/23/24 22:30 06/22/24 22:29 Insulin Human Regular (humuLIN R 100 UNIT/ML 3ML) INSULIN SLIDING SCAL... ACHS SQ 05/24/24 07:30 06/23/24 07:29 Morphine Sulfate (morPHINE 2MG SYG) 2 mg Q4H PRN IVP SEVERE PAIN (7-10) 05/23/24 22:30 05/30/24 22:29 Nitroglycerin (Nitroglycerin 1gm Oint) 0.5 inch Q8H TD 05/23/24 22:30 06/22/24 22:29 05/23/24 22:45 0.5 INCH Nitroglycerin (Nitrostat) 0.4 mg Q5M PRN SL CHEST PAIN 05/23/24 21:00 Ondansetron HCl (zoFRAN 4MG INJ) 4 mg Q6H PRN IV NAUSEA/VOMITING 05/23/24 22:30 06/22/24 22:29 DIAGNOSTICS / RADIOLOGY: [ ] ASSESSMENT: Suspected ACS POA Hypocalcemia, POA Hypertension Hyperlipidemia CAD Diabetes mellitius type2 Hypothyroidism PLAN: [ ] Admit: Medical-surgical floor condition: Guarded Status: Full code IVF: [employer] reimbursement consultant's A.c s. protocol x2 negative Labs cbc, cmp, mag+ Replace electrolytes as needed as per protocol to keep potassium above 4.0 magnesium 2.0. Supportive measures: DVT ppx, GI ppx all questions answered time spent: > 35 min Supervising MD: Dr. Gonzalez c/d This document was generated in part using voice recognition software, occasional wrong word or sound alike substitutions may have occurred due to the inherent limitations of voice recognition software. Read the chart carefully and recognize using context, where the substitutions have occurred. Although every effort was made to edit the content, manager chinese and typing errors may occur ATTESTATION BY PHYSICIAN I have seen and examined the patient. I reviewed the documentation, medical decision making, and treatment plan as noted by the mid-level provider above. I agree with the findings and plan of care. CARLIN GONZALEZ MD, ELIZABETH NP May 24, 2024 09:48
--- NOTE | 2024-05-24 11:23 | NUR ---
DCP - Home Patient speaks Czech. Patient states he lives with Michael Jiang, Son [phone] in a house with a ramp entrance and a walk in shower. 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 States able to complete ADL's on his own. States he has a walker with a seat, an electric power chair (needs new battery) and shower chair. Denies home health services and dialysis. [facility] provides a provider for about 18 hours per week. PCP - Abel Ulrich MD Pharmacy - [address] Upon discharge, Michael Jiang, Son [phone] and assist with care, as needed. Addendum: 05/24/24 at 1130 by STEPHEN FERNANDES RN CM Amended: Links added.
[2024-05-24 11:50] LABS: CHOLESTEROL 116 mg/dL (<200); HDL CHOLESTEROL 42 mg/dL (29-71); LDL DIRECT 63 mg/dL (0-99); TRIGLYCERIDES 90 mg/dL (30-200)
[2024-05-24 12:00] VITALS: BP 139/78; PULSE 60; RESP 18; TEMP 98.4
[2024-05-24] MEDS: ISOSORBIDE MONO 30MG SR TAB PO ONE (12:04)
--- NOTE | 2024-05-24 12:26 | CONS ---
[facility] CARDIOLOGY CONSULTATION REPORT Cardiology consultation note dictated for Luana Turner MD Primary container finisher: Curtis Rain MD Date Patient Seen: May 24, 2024 Requesting Physician: ANABELL Bowman Reason for Consultation: Chest pain History of Present Illness: This is a 78-year-old Latin-Rwandan male with a past medical history of hypertension, type 2 diabetes mellitus, hyperlipidemia, hypothyroidism on supplements, sleep apnea, RBBB, nonobstructive CAD via LHC on 08/28/2023, normal Lexiscan Cardiolite stress test on 06/30/2023, LHC on 01/21/2024 demonstrated predominantly nonobstructive coronary disease with the exception of an 80% apical LAD stenosis, moderate 60% mid LAD stenosis, 40% ostial nondominant left circumflex stenosis, 50% proximal RCA stenosis and 40% mid RCA stenosis, with 40% ostial PDA and posterolateral segment branch stenoses who presented to the ED with complaints of chest discomfort of one day in duration. Cardiology has been consulted for chest pain. The patient admitted to intermittent, left-sided chest discomfort of a sharp quality and a 5-7/10 intensity at its worst which would last 5-8 seconds and subside on its own. He ignored it and when he began to cut his grass, the chest discomfort came back more intense which prompted him to seek medical attention. Troponin of 32, 29, and 34. EKG on admission demonstrated normal sinus rhythm with a heart rate of 57 bpm with a RBBB. The patient currently denies chest pain, chest pressure, palpitations, dizziness, shortness of breath, or syncope. In Mar 2024, the patient states his primary care physician discontinued all his home medications except aspirin, rosuvastatin, and levothyroxine due to hypotension. He admits he did not experience chest discomfort when taking isosorbide mononitrate. Since stopping bp meds in Mar to April, his sbp ranges 120-160mmHg with dbp 60-80mmHg. He has not checked his bp for about one month since changing PCPs due to his prior PCP picking up his home bp monitoring machine. LDL 63. Past Medical History: As outlined above and summarized below Past Surgical History: Thyroidectomy Tongue lesion removal Penile skin lesion scraping Family History: Mother and father , father with a history of cancer, otherwise noncontributory for coronary artery disease Social History: The patient is . He has been independent. Habits: The patient denies any tobacco use, reports he quit around 1999 or 2001. He occasionally consumes alcohol and denies illicit drug use Home Meds: [id number] mg daily Rosuvastatin 20 mg daily Levothyroxine 175 mcg daily Current Meds: Current Medications Medications Dose Ordered Sig/Brooks Start Time Stop Time Status Last Admin Nitroglycerin 0.4 mg Q5M PRN 05/23/24 21:00 Aspirin 81 mg DAILY 05/24/24 09:00 06/23/24 08:59 05/24/24 07:54 Enoxaparin Sodium 40 mg DAILY 05/24/24 09:00 06/23/24 08:59 Famotidine 20 mg DAILY 05/24/24 09:00 06/23/24 08:59 05/24/24 07:54 Hydralazine HCl 10 mg Q6H PRN 05/23/24 22:30 06/22/24 22:29 Morphine Sulfate 2 mg Q4H PRN 05/23/24 22:30 05/30/24 22:29 Ondansetron HCl 4 mg Q6H PRN 05/23/24 22:30 06/22/24 22:29 Nitroglycerin 0.5 inch Q8H 05/23/24 22:30 06/22/24 22:29 05/23/24 22:45 Clopidogrel Bisulfate 75 mg DAILY 05/24/24 09:00 06/23/24 08:59 05/24/24 07:54 Atorvastatin Calcium 40 mg HS 05/24/24 21:00 06/23/24 20:59 Calcium Carbonate 500 tab BID 05/24/24 09:00 06/23/24 08:59 05/24/24 07:54 Insulin Human Regular INSULIN SLIDING SCAL... ACHS 05/24/24 07:30 06/23/24 07:29 Isosorbide Mononitrate 60 mg DAILY 05/25/24 09:00 06/24/24 08:59 Spironolactone 12.5 mg DAILY 05/25/24 09:00 06/24/24 08:59 Tamsulosin HCl 0.4 mg HS 05/24/24 21:00 06/23/24 20:59 Citalopram Hydrobromide 20 mg DAILY 05/25/24 09:00 06/24/24 08:59 Levothyroxine Sodium 75 mcg SYN 05/25/24 06:30 06/24/24 06:29 Isosorbide Mononitrate 30 mg ONCE ONCE 05/24/24 12:10 05/24/24 12:11 05/24/24 12:04 Review of Systems: CONST: No fever, fatigue, or weight changes. EYES: No recent vision problems. ENT: No congestion, ear pain, or sore throat. C/V: No chest pain, palpitations, or edema. RESP: No cough, congestion, wheezing or shortness of breath. GI: No abdominal pain, nausea, vomiting, constipation, or diarrhea. : No incontinence or dysuria. SKIN: No rash. NEURO: No headache, focal numbness or weakness, dizziness, or seizures. PSYCH: No depression or anxiety. HEME: No abnormal bruising or bleeding. LYMPH: No swollen glands. Physical Examination: GENERAL: No acute distress. HEAD: Normal with no signs of head trauma. EYES: PERRLA, EOMI, conjunctiva and sclera normal. ENT: Hearing grossly intact, normal oropharynx. NECK: Supple without JVD. There is no tenderness, lymphadenopathy, or masses. No thyromegaly. Normal carotid upstrokes without bruits. LUNGS: Clear breath sounds bilaterally. No wheezes, or rhonchi. HEART: Normal rate and rhythm. Normal S1 and S2 without murmurs, gallop or rub. VASC: Peripheral pulses +2 bilaterally. ABD: Bowel sounds normal, soft, nontender, no masses, no organomegaly. No audible bruits. : Not examined LYMPH: No lymphadenopathy noted. EXT: No clubbing, cyanosis or edema. SKIN: No rashes or lesions noted. NEURO: Awake, alert, and oriented x3. No focal sensory or strength deficits noted. Vital Signs (last 8hr) Date Time Temp Pulse Resp B/P (MAP) Pulse Ox O2 Delivery O2 Flow Rate FiO2 05/24/24 08:00 94 Room Air* 0 21 05/24/24 08:00 97.5 50 18 141/76 94 Room Air Laboratory: Hematology Labs: Test 05/24/24 05:29 Range/Units White Blood Count 4.4 #L 4.8-10.8 K/uL Red Blood Count 3.74 L 4.50-6.20 MIL/uL Hemoglobin 12.4 L 14.0-18.0 g/dL Hematocrit 35.9 L 42-54 % Mean Corpuscular Volume 96.0 79-99 fL Mean Corpuscular Hemoglobin 33.2 H 27.0-33.0 pg Mean Corpuscular Hemoglobin Concent 34.5 32.0-36.0 g/dL Red Cell Distribution Width 12.7 11.0-15.5 % Platelet Count 83 L 130-400 K/uL Mean Platelet Volume 11.8 H 7.5-10.5 fL Immature Granulocyte % (Auto) 0.7 0-1 % Neutrophils (%) (Auto) 48.7 40.0-77.0 % Lymphocytes (%) (Auto) 32.4 21.0-51.0 % Monocytes (%) (Auto) 10.8 3.0-13.0 % Eosinophils (%) (Auto) 6.5 0.0-8.0 % Basophils (%) (Auto) 0.9 0.0-5.0 % Neutrophils # (Auto) 2.2 1.8-7.7 K/uL Lymphocytes # (Auto) 1.4 1.0-4.8 K/uL Monocytes # (Auto) 0.5 0.1-1.0 K/uL Eosinophils # (Auto) 0.29 0.00-0.70 K/uL Basophils # (Auto) 0.04 0.00-0.20 K/uL Absolute Immature Granulocyte (auto 0.03 0-1 K/uL Nucleated Red Blood Cells 0.0 0.0-0.19 % Chemistry Labs: Test 05/24/24 11:05 05/24/24 10:09 05/24/24 05:29 05/23/24 20:45 Range/Units Whole Blood Glucose 125 H 70-110 MG/DL Troponin I High Sensitivity 34 4-75 ng/L Sodium Level 143 136-145 mmol/L Potassium Level 3.8 3.5-5.1 mmol/L Chloride Level 110 101-111 mmol/L Carbon Dioxide Level 27 21-32 mmol/L Blood Urea Nitrogen 13 7-18 mg/dL Creatinine 0.7 0.5-1.3 mg/dL Glomerular Filtration Rate Calc 95 >90 mL/min Random Glucose 104 70-105 mg/dL Hemoglobin A1c 5.8 4.0-6.0 % Estimated Average Glucose (eAG) 120 70-126 mg/dL Total Calcium 7.6 L 8.5-10.1 mg/dL Phosphorus Level 4.1 2.5-4.9 mg/dL Magnesium Level 2.00 1.80-2.40 mg/dL Triglycerides Level 90 30-200 mg/dL Cholesterol Level 116 # <200 mg/dL LDL Cholesterol 63 0-99 mg/dL HDL Cholesterol 42 29-71 mg/dL Thyroid Stimulating Hormone (TSH) 0.05 #L 0.36-3.74 uIU/mL Total Creatine Kinase 201 21-232 U/L B-Type Natriuretic Peptide 104 H 0-100 pg/mL Diagnostics / Radiology: Impression and Plan: Angina HTN HLD DM type II Hypothyroidism Sleep apnea Normal Lexiscan Cardiolite stress test on 06/30/2023 LHC on 01/21/2024 demonstrated predominantly nonobstructive coronary disease with the exception of an 80% apical LAD stenosis, moderate 60% mid LAD stenosis, 40% ostial nondominant left circumflex stenosis, 50% proximal RCA stenosis and 40% mid RCA stenosis, with 40% ostial PDA and posterolateral segment branch stenoses Angina Troponin peak of 34 EKG on admission demonstrated normal sinus rhythm with a heart rate of 57 bpm with a RBBB Follow up cardiac catheterization 01/21/2024 demonstrated predominantly nonobstructive coronary disease with the exception of an 80% apical LAD stenosis, moderate 60% mid LAD stenosis, 40% ostial nondominant left circumflex stenosis, 50% proximal RCA stenosis and 40% mid RCA stenosis, with 40% ostial PDA and posterolateral segment branch stenoses -Continue aspirin 81 mg p.o. daily, statin therapy and isosorbide mononitrate ER 30 mg p.o. daily -Assess BP response to Isosorbide mono SHITAL ALEX [employer] May 24, 2024 12:26
[2024-05-24 16:00] VITALS: BP 113/67; PULSE 55; RESP 18; TEMP 99.6
[2024-05-24 19:57] VITALS: O2SAT 97
[2024-05-24 20:00] VITALS: BP 101/65; PULSE 56; RESP 17; TEMP 98.5
[2024-05-24] MEDS: tamSULOsin HCL 0.4 MG CAP.ER.24H PO SCH (20:11)
[2024-05-24] MEDS: atorVAStatin 40 MG TABLET PO SCH (20:11)
[2024-05-24] MEDS: acetaMINOPHEN 500 MG TABLET PO PRN (21:06)
[2024-05-24] MEDS: acetaMINOPHEN 500 MG TABLET ONE (21:07)
[2024-05-25] VITALS: BP 116/60; PULSE 57; RESP 17; TEMP 97.9
[2024-05-25] MEDS ORDERED: acetaMINOPHEN 325 MG TAB PO PRN (00:30)
[2024-05-25 04:00] VITALS: BP 127/71; PULSE 55; RESP 17; TEMP 97.7
[2024-05-25 05:11] LABS: BASOPHILS # (AUTO) 0.04 K/uL (0.00-0.20); BASOPHILS % (AUTO) 0.9 % (0.0-5.0); EOSINOPHILS # (AUTO) 0.26 K/uL (0.00-0.70); EOSINOPHILS % (AUTO) 5.6 % (0.0-8.0); HEMATOCRIT 33.5 % (42-54); IMMATURE GRANULOCYTE ABSOLUTE 0.02 K/uL (0-1); LYMPHOCYTES # (AUTO) 1.3 K/uL (1.0-4.8); LYMPHOCYTES % (AUTO) 28.7 % (21.0-51.0); MEAN CORPUSCULAR HEMOGLOBIN 32.4 pg (27.0-33.0); MEAN CORPUSCULAR VOLUME 95.2 fL (79-99); MONOCYTES # (AUTO) 0.5 K/uL (0.1-1.0); MONOCYTES % (AUTO) 9.7 % (3.0-13.0); NEUTROPHILS # (AUTO) 2.5 K/uL (1.8-7.7); NEUTROPHILS % (AUTO) 54.7 % (40.0-77.0); PLATELET COUNT (AUTO) 77 K/uL (130-400); RED BLOOD CELL COUNT(AUTO) 3.52 MIL/uL (4.50-6.20); RED CELL DISTRIBUTION WIDTH 12.6 % (11.0-15.5); WHITE BLOOD COUNT (AUTO) 4.6 K/uL (4.8-10.8)
[2024-05-25 05:24] LABS: ALBUMIN 2.9 g/dL (3.5-5.0); BILIRUBIN,TOTAL 0.3 mg/dL (0.2-1.0); CREATININE 0.7 mg/dL (0.5-1.3); POTASSIUM 3.4 mmol/L (3.5-5.1); TOTAL PROTEIN, SERUM 5.3 g/dL (6.0-8.3)
[2024-05-25] MEDS: levoTHYROxine 75 MCG TABLET PO SCH (05:53)
[2024-05-25] MEDS: PoTASSium chloRIDE 20MEQ ER 20 MEQ ERTAB PO PRN (05:54)
[2024-05-25] MEDS ORDERED: PoTASSium chl 10% ELIXIR 20MEQ 20 MEQ/15 ML UDCUP PO PRN (06:00)
[2024-05-25] MEDS ORDERED: PoTASSium chloRIDE 20MEQ/100ML 100 ML IV PRN (06:00)
[2024-05-25 08:00] VITALS: BP 133/74; PULSE 52; RESP 19; TEMP 97.6; O2SAT 95
[2024-05-25] MEDS: citaLOPram 20 MG TABLET PO SCH (08:08)
--- NOTE | 2024-05-25 08:17 | PN ---
[facility] CARDIOLOGY PROGRESS NOTE Date Patient Seen: May 25, 2024 Time of Visit: 08:07 Interval History: This is a 78-year-old Latin-Mauritanian male with a past medical history of hypertension, type 2 diabetes mellitus, hyperlipidemia, hypothyroidism on supplements, sleep apnea, RBBB, normal Lexiscan Cardiolite stress test on 06/30/2023, dyspnea on exertion and follow-up cardiac catheterization on 01/21/2024 demonstrated predominantly nonobstructive coronary disease with the exception of an 80% apical LAD stenosis, moderate 60% mid LAD stenosis, 40% ostial nondominant left circumflex stenosis, 50% proximal RCA stenosis and 40% mid RCA stenosis, with 40% ostial PDA and posterolateral segment branch stenoses and was managed medically. He presented to the emergency department with stabbing quality left-sided chest pain which was intermittent for approximately 6 hours. His symptoms occurred with exertion such as mowing his grass but also at rest. Duration was anywhere from 5-8 seconds and there was associated dyspnea. He denied any nausea, vomiting or diaphoresis. He admits that approximately 1 month ago, his antihypertensive drug therapy and his isosorbide were withdrawn as he was developing dizziness every time he would take his medications. He inadvertently had been taking a whole tablet of the blood pressure medicine versus half a tablet that was recommended in the past. He has ruled out for acute myocardial ischemia. His blood pressure has remained stable. His chest x-ray on admission demonstrated mild cardiomegaly with no evidence of CHF. He has been restarted on isosorbide but his antihypertensive drug therapy losartan/HCTZ 100/25 mg is on hold. Blood pressure has remained stable. Physical Examination: GENERAL: No acute distress. HEAD: Normal with no signs of head trauma. EYES: PERRLA, EOMI, conjunctiva and sclera normal. NECK: Supple without JVD. There is no tenderness, lymphadenopathy, or masses. No thyromegaly. Normal carotid upstrokes without bruits. LUNGS: Clear breath sounds bilaterally. No wheezes, or rhonchi. HEART: Normal rate and rhythm. Normal S1 and S2 without murmurs, gallop or rub. VASC: Peripheral pulses +2 bilaterally. EXT: No clubbing, cyanosis or edema. NEURO: Awake, alert, and oriented x3. No focal neurological deficits noted. Laboratory: Hematology Labs: Test 05/25/24 04:27 Range/Units White Blood Count 4.6 L 4.8-10.8 K/uL Red Blood Count 3.52 L 4.50-6.20 MIL/uL Hemoglobin 11.4 L 14.0-18.0 g/dL Hematocrit 33.5 L 42-54 % Mean Corpuscular Volume 95.2 79-99 fL Mean Corpuscular Hemoglobin 32.4 27.0-33.0 pg Mean Corpuscular Hemoglobin Concent 34.0 32.0-36.0 g/dL Red Cell Distribution Width 12.6 11.0-15.5 % Platelet Count 77 L 130-400 K/uL Mean Platelet Volume 12.2 H 7.5-10.5 fL Immature Granulocyte % (Auto) 0.4 0-1 % Neutrophils (%) (Auto) 54.7 40.0-77.0 % Lymphocytes (%) (Auto) 28.7 21.0-51.0 % Monocytes (%) (Auto) 9.7 3.0-13.0 % Eosinophils (%) (Auto) 5.6 0.0-8.0 % Basophils (%) (Auto) 0.9 0.0-5.0 % Neutrophils # (Auto) 2.5 1.8-7.7 K/uL Lymphocytes # (Auto) 1.3 1.0-4.8 K/uL Monocytes # (Auto) 0.5 0.1-1.0 K/uL Eosinophils # (Auto) 0.26 0.00-0.70 K/uL Basophils # (Auto) 0.04 0.00-0.20 K/uL Absolute Immature Granulocyte (auto 0.02 0-1 K/uL Nucleated Red Blood Cells 0.0 0.0-0.19 % Chemistry Labs: Test 05/25/24 05:09 05/25/24 04:27 05/24/24 14:48 05/24/24 05:29 Range/Units Whole Blood Glucose 122 H 70-110 MG/DL Sodium Level 142 136-145 mmol/L Potassium Level 3.4 L 3.5-5.1 mmol/L Chloride Level 110 101-111 mmol/L Carbon Dioxide Level 28 21-32 mmol/L Blood Urea Nitrogen 12 7-18 mg/dL Creatinine 0.7 0.5-1.3 mg/dL Glomerular Filtration Rate Calc 95 >90 mL/min Random Glucose 145 H 70-105 mg/dL Total Calcium 7.5 L 8.5-10.1 mg/dL Magnesium Level 2.00 1.80-2.40 mg/dL Total Bilirubin 0.3 0.2-1.0 mg/dL Aspartate Amino Transf (AST/SGOT) 20 10-37 U/L Alanine Aminotransferase (ALT/SGPT) 24 12-78 U/L Alkaline Phosphatase 66 50-136 U/L Total Protein 5.3 L 6.0-8.3 g/dL Albumin 2.9 L 3.5-5.0 g/dL Troponin I High Sensitivity 33 4-75 ng/L Hemoglobin A1c 5.8 4.0-6.0 % Estimated Average Glucose (eAG) 120 70-126 mg/dL Phosphorus Level 4.1 2.5-4.9 mg/dL Triglycerides Level 90 30-200 mg/dL Cholesterol Level 116 # <200 mg/dL LDL Cholesterol 63 0-99 mg/dL HDL Cholesterol 42 29-71 mg/dL Thyroid Stimulating Hormone (TSH) 0.05 #L 0.36-3.74 uIU/mL Test 05/23/24 20:45 Range/Units Total Creatine Kinase 201 21-232 U/L B-Type Natriuretic Peptide 104 H 0-100 pg/mL Diagnostics / Radiology: 2D echocardiogram report is pending Impression and Plan: Atypical chest pain Nonobstructive coronary artery disease with 80% apical LAD stenosis and a ivzgy-qa-[id number] vessel distally and hyperdynamic LV with an LVEF of 70% by cardiac catheterization 01/21/2024 (60% diffuse mid LAD stenosis, 40% ostial left circumflex stenosis, 40 and 50% proximal and distal RCA stenosis): -continue aspirin and statin therapy -advanced his isosorbide mononitrate ER to 60 mg p.o. daily -continue plans for medical management. -progressive ambulation this morning and discharge home today with follow-up at [facility] in one week Hypertension: -the patient had hypotension taking his losartan/HCTZ 100/25 mg p.o. daily -has been normotensive in the hospital off antihypertensive drug therapy -continue to hold losartan/HCTZ and monitor blood pressure as an outpatient -Arrange outpatient follow-up at [facility] in 1 week for reassessment Comorbidities: Hyperlipidemia Type 2 diabetes mellitus Hypothyroidism on supplements Sleep apnea History of remote tobacco abuse Obesity PHYSICIAN ATTESTATION OF PHYSICIAN MANAGER DOCUMENT CONTROL DOCUMENTATION: I attest that I was physically present for the smalls portions of the service and evaluated the patient with the Physician Home Appliances Mechanic, and I reviewed and discussed the case with the Physician Home Appliances Mechanic and made modifications to the Physician Home Appliances Mechanic's findings and plans of care as documented above CHHAYA ÁLVAREZ May 25, 2024 08:17 KALE CHVAEZ MD May 26, 2024 14:04
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
[2024-05-25] MEDS ORDERED: AEC81 PO (08:44)
[2024-05-25] MEDS ORDERED: ISOSORBIDE MONO 30MG SR TAB PO SCH (09:00)
[2024-05-25] MEDS ORDERED: SPIRONOLACTONE 25 MG TAB PO SCH (09:00)
[2024-05-25] MEDS ORDERED: ISOSORBIDE MONO 60MG SR TAB PO SCH (09:00)
[2024-05-25] MEDS: PoTASSium chloRIDE 20MEQ ER 20 MEQ ERTAB PO SCH (09:13)
[2024-05-25] MEDS: ISOSORBIDE MONO 30MG SR TAB PO SCH (09:13)
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
[2024-05-25 10:11] LABS: BASOPHILS # (AUTO) 0.04 K/uL (0.00-0.20); BASOPHILS % (AUTO) 0.9 % (0.0-5.0); EOSINOPHILS # (AUTO) 0.23 K/uL (0.00-0.70); EOSINOPHILS % (AUTO) 5.3 % (0.0-8.0); HEMATOCRIT 35.3 % (42-54); IMMATURE GRANULOCYTE ABSOLUTE 0.02 K/uL (0-1); LYMPHOCYTES # (AUTO) 1.1 K/uL (1.0-4.8); LYMPHOCYTES % (AUTO) 26.5 % (21.0-51.0); MEAN CORPUSCULAR HEMOGLOBIN 32.5 pg (27.0-33.0); MEAN CORPUSCULAR HGB CONC 34.3 g/dL (32.0-36.0); MEAN CORPUSCULAR VOLUME 94.9 fL (79-99); MONOCYTES # (AUTO) 0.5 K/uL (0.1-1.0); MONOCYTES % (AUTO) 10.4 % (3.0-13.0); NEUTROPHILS # (AUTO) 2.4 K/uL (1.8-7.7); NEUTROPHILS % (AUTO) 56.4 % (40.0-77.0); PLATELET COUNT (AUTO) 89 K/uL (130-400); RED BLOOD CELL COUNT(AUTO) 3.72 MIL/uL (4.50-6.20); RED CELL DISTRIBUTION WIDTH 12.5 % (11.0-15.5); WHITE BLOOD COUNT (AUTO) 4.3 K/uL (4.8-10.8)
[2024-05-25 11:47] VITALS: BP 122/69; PULSE 60; RESP 20; TEMP 97.7
[2024-05-25] MEDS: CYANOCOBALAMIN (VITAMIN B-12) 1,000 MCG TABLET PO SCH (13:21)
[2024-05-25] MEDS: FOLic ACID 1 MG TABLET PO SCH (13:21)
--- NOTE | 2024-05-25 13:33 | CONS ---
CONSULT NOTE: Mr. Jiang is a 78-year-old male who was seen and examined today on 05/24/2024. Patient is a good historian of personal health. Patient's son Michael is at bedside. Patient states he came to the emergency department with a chief complaint of chest pain. Onset was today at 3:00 p.m.. Location is left pectoral area. Duration is on and off. Patient reports eight episodes that were 5-10 seconds each. Character is described as pulsing pain. There was no alleviating factors. There was no aggravating factors. Patient denies any associated shortness of breath or dizziness. Patient had a heart catheterization on 01/21/2024 and was diagnosed with nonobstructive CAD except for LAD which had an 80% blockage recommendation from Cardiology at that time was for medical management and four follow up although patient states he has not had an opportunity to follow up. Today in the emergency department CBC unremarkable, calcium 7.7, no urinalysis has been collected or sent to lab, chest x-ray is unremarkable. I was consulted because this patient have thrombocytopenia and mild anemia. Patient History: Carcinomas FATHER (prostate cancer) ADDITIONAL PAST MEDICAL HISTORY: [Hypertension, hyperlipidemia, nonobstructive CAD, Diabetes mellitius type2, hypothyroidism] SOCIAL HISTORY: [Patient quit smoking 20 years ago. Patient drinks alcohol about 2 times a week usually eight beers that are 12 oz each. Patient denies drug use. Patient lives with the son, Michael Jiang. Patient is typically independent of all his ADLs. Patient has good access to health care through his insurance. Patient denies difficulty pain is bills. 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 SURGICAL HISTORY: [Thyroidectomy, heart catheterization, circumcision] Review of Systems Review of Systems General: No Fever, No Chills, No Night Sweats, No Fatigue, No Malaise, No Appetite, No Other HEENT: No Head Aches, No Visual Changes, No Eye Pain, No Ear Pain, No Dysphasia, No Sinus Congestion, No Post Nasal Drip, No Sore Throat, No Other Pulmonary: No Dyspnea, No Cough, No Pleuritic Chest Pain, No Other Cardiovascular: Chest Pain; No: Palpitations, Orthopnea, Paroxysmal Noc. Dyspnea, Edema, Lt Headedness, Other Gastrointestinal: No: Nausea, Vomiting, Abdominal Pain, Diarrhea, Constipation, Melena, Hematochezia, Other Genitourinary: No Dysuria, No Frequency, No Incontinence, No Hematuria, No Retention, No Other Musculoskeletal: No: other, neck pain, shoulder pain, arm pain, back pain, hand pain, leg pain, foot pain Skin: No Urticaria, No Rash, No Other Neurological: No: Weakness, Numbness, Incoordination, Change in speech, Confusion, Seizures, Other Allergies: Coded Allergies: No Known Allergies (Unverified Allergy, Unknown, 11/20/21) Scheduled Citalopram Hydrobromide (Citalopram HBr), 1 TAB PO DAILY, (Reported) Isosorbide Mononitrate (Isosorbide Mononitrate ER), 1 TAB PO DAILY, (Reported) Levothyroxine Sodium (Levothyroxine), 1 TAB PO DAILY, (Reported) Losartan/Hydrochlorothiazide (Losartan-Hctz 100-25 mg Tab), 0.5 TAB PO DAILY Rosuvastatin Calcium (Rosuvastatin Calcium), 20 MG PO DAILY, (Reported) Tamsulosin HCl (Flomax), 1 CAP PO DAILY, (Reported) Exam Exam General Appearance: Alert, Oriented X3, Cooperative, No acute distress HEENT: Atraumatic, EOMI, Mucous membr. moist/pink Respiratory: Clear to auscultation, Normal air movement, NL respiratory effort Cardiovascular: Regular rate, Regular rhythm, Normal S1, Normal S2 Abdominal: Normal bowel sounds, Soft, No tenderness Extremities: No edema Skin: No significant lesion Neuro: Normal speech, Sensation intact, Cranial nerves 3-12 NL Psych/Mental Status: Mental status NL, Mood NL, Thoughts/Content NL Assessment 1. Thrombocytopenia 2. Mild anemia 3. Chest pain rule out [place] 4. Hypertension 5. Hyperlipidemia 6. Diabetes mellitus Plan 1. Peripheral blood smear showed red blood cells to be normocytic normochromic. There was no fragment cell or schistocyte. There is no teardrop cell. There is no rouleaux phenomena. There is no pelger-Huet cell. White blood cell with no blasts. There is is decreased number of the platelet. There is no large platelet. There is no clumping of the platelet. There is no schistocytes or fragment cell. This rule out TTP and DIC. 2. There was hypersegmented neutrophils. This patient to be started on folic acid 1 mg p.o. daily and vitamin B12 1000 mcg p.o. daily. 3. This patient low platelet could be due to bone marrow suppression or myelodysplastic syndrome. 4. This patient could be treated with antiplatelet or anticoagulation if needed. 5. No need for blood product transfusion 6. If this patient is able he could be discharged to follow-up as outpatient in the next few weeks LAB RESULTS 05/25/24 11:11: Whole Blood Glucose 144H 05/25/24 09:47: White Blood Count 4.3L, Red Blood Count 3.72L, Hemoglobin 12.1L, Hematocrit 35. 3L, Mean Corpuscular Volume 94.9, Mean Corpuscular Hemoglobin 32.5, Mean Corpuscular Hemoglobin Concent 34.3, Red Cell Distribution Width 12.5, Platelet Count 89L, Mean Platelet Volume 11.9H, Immature Granulocyte % (Auto) 0.5, Neutrophils (%) (Auto) 56.4, Lymphocytes (%) (Auto) 26.5, Monocytes (%) (Auto) 10.4, Eosinophils (%) (Auto) 5.3, Basophils (%) (Auto) 0.9, Neutrophils # (Auto) 2.4, Lymphocytes # (Auto) 1.1, Monocytes # (Auto) 0.5, Eosinophils # (Auto) 0.23, Basophils # (Auto) 0.04, Absolute Immature Granulocyte (auto 0.02, Nucleated Red Blood Cells 0.0 05/25/24 04:27: Sodium Level 142, Potassium Level 3.4L, Chloride Level 110, Carbon Dioxide Level 28, Blood Urea Nitrogen 12, Creatinine 0.7, Glomerular Filtration Rate Calc 95, Random Glucose 145H, Total Calcium 7.5L, Magnesium Level 2.00, Total Bilirubin 0.3, Aspartate Amino Transf (AST/SGOT) 20, Alanine Aminotransferase (ALT/SGPT) 24, Alkaline Phosphatase 66, Total Protein 5.3L, Albumin 2.9L 05/24/24 18:00: Stool Occult Blood NEGATIVE 05/24/24 14:48: Troponin I High Sensitivity 33 05/24/24 05:29: Hemoglobin A1c 5.8, Estimated Average Glucose (eAG) 120, Phosphorus Level 4.1, Triglycerides Level 90, Cholesterol Level 116#, LDL Cholesterol 63, HDL Cholesterol 42, Thyroid Stimulating Hormone (TSH) 0.05#L 05/23/24 23:46: Urine Color COLORLESS, Urine Appearance CLEAR, Urine pH 5.0, Urine Specific [place] 1.007, Urine Protein NEGATIVE, Urine Glucose (UA) NEGATIVE, Urine Ketones NEGATIVE, Urine Occult Blood NEGATIVE, Urine Nitrate NEGATIVE, Urine Bilirubin NEGATIVE, Urine Urobilinogen 0.2, Urine Leukocyte Esterase NEGATIVE 05/23/24 20:45: Total Creatine Kinase 201, B-Type Natriuretic Peptide 104H Laboratory Tests Test 05/24/24 14:48 05/24/24 16:13 05/24/24 18:00 05/24/24 19:33 Troponin I High Sensitivity 33 ng/L (4-75) Whole Blood Glucose 123 MG/DL (70-110) H 110 MG/DL (70-110) Stool Occult Blood NEGATIVE (NEGATIVE) Test 05/25/24 04:27 05/25/24 05:09 05/25/24 09:47 05/25/24 11:11 White Blood Count 4.6 K/uL (4.8-10.8) L 4.3 K/uL (4.8-10.8) L Red Blood Count 3.52 MIL/uL (4.50-6.20) L 3.72 MIL/uL (4.50-6.20) L Hemoglobin 11.4 g/dL (14.0-18.0) L 12.1 g/dL (14.0-18.0) L Hematocrit 33.5 % (42-54) L 35.3 % (42-54) L Mean Corpuscular Volume 95.2 fL (79-99) 94.9 fL (79-99) Mean Corpuscular Hemoglobin 32.4 pg (27.0-33.0) 32.5 pg (27.0-33.0) Mean Corpuscular Hemoglobin Concent 34.0 g/dL (32.0-36.0) 34.3 g/dL (32.0-36.0) Red Cell Distribution Width 12.6 % (11.0-15.5) 12.5 % (11.0-15.5) Platelet Count 77 K/uL (130-400) L 89 K/uL (130-400) L Mean Platelet Volume 12.2 fL (7.5-10.5) H 11.9 fL (7.5-10.5) H Immature Granulocyte % (Auto) 0.4 % (0-1) 0.5 % (0-1) Neutrophils (%) (Auto) 54.7 % (40.0-77.0) 56.4 % (40.0-77.0) Lymphocytes (%) (Auto) 28.7 % (21.0-51.0) 26.5 % (21.0-51.0) Monocytes (%) (Auto) 9.7 % (3.0-13.0) 10.4 % (3.0-13.0) Eosinophils (%) (Auto) 5.6 % (0.0-8.0) 5.3 % (0.0-8.0) Basophils (%) (Auto) 0.9 % (0.0-5.0) 0.9 % (0.0-5.0) Neutrophils # (Auto) 2.5 K/uL (1.8-7.7) 2.4 K/uL (1.8-7.7) Lymphocytes # (Auto) 1.3 K/uL (1.0-4.8) 1.1 K/uL (1.0-4.8) Monocytes # (Auto) 0.5 K/uL (0.1-1.0) 0.5 K/uL (0.1-1.0) Eosinophils # (Auto) 0.26 K/uL (0.00-0.70) 0.23 K/uL (0.00-0.70) Basophils # (Auto) 0.04 K/uL (0.00-0.20) 0.04 K/uL (0.00-0.20) Absolute Immature Granulocyte (auto 0.02 K/uL (0-1) 0.02 K/uL (0-1) Nucleated Red Blood Cells 0.0 % (0.0-0.19) 0.0 % (0.0-0.19) Sodium Level 142 mmol/L (136-145) Potassium Level 3.4 mmol/L (3.5-5.1) L Chloride Level 110 mmol/L (101-111) Carbon Dioxide Level 28 mmol/L (21-32) Blood Urea Nitrogen 12 mg/dL (7-18) Creatinine 0.7 mg/dL (0.5-1.3) Glomerular Filtration Rate Calc 95 mL/min (>90) Random Glucose 145 mg/dL (70-105) H Total Calcium 7.5 mg/dL (8.5-10.1) L Magnesium Level 2.00 mg/dL (1.80-2.40) Total Bilirubin 0.3 mg/dL (0.2-1.0) Aspartate Amino Transf (AST/SGOT) 20 U/L (10-37) Alanine Aminotransferase (ALT/SGPT) 24 U/L (12-78) Alkaline Phosphatase 66 U/L (50-136) Total Protein 5.3 g/dL (6.0-8.3) L Albumin 2.9 g/dL (3.5-5.0) L Whole Blood Glucose 122 MG/DL (70-110) H 144 MG/DL (70-110) H MILLIE SERRANO MD May 25, 2024 13:33
[2024-05-25] MEDS ORDERED: FOLI1 PO (14:50)
[2024-05-25] MEDS ORDERED: CYAN-52 PO (14:50)
--- NOTE | 2024-05-25 15:03 | DS ---
Discharge Summary Hospital Course Summary: This is a 78-year-old male that was admitted yesterday for six 2024 with chief complaints of chest pain radiates to mid back. The patient has a history of SD a year ago. Manager Program's consulted we will follow recommendations.\ Patient was seen patient appears to be in no distress. We will wait for cardi ologist's final recommendations echo will be done. DURING THE COURSE OF STAY PATIENT WAS SEEN BY COMPONENT ENGINEER'S. WE WILL CONTINUE WITH MEDICAL MANAGEMENT CONTINUE ASPIRIN AND STATIN THERAPY IN ISOSORBIDE MONONITRATE ER DAILY. PATIENT WILL FOLLOW-UP [facility] IN ONE-WEEK HOME MEDICATIONS PER COMPONENT ENGINEER'S WE WILL HOLD LOSARTAN HCTZ BLOOD PRESSURE WE WILL BE MONITORED A OUTPATIENT. The patient was seen by hatchery attendant's we will thrombocytopenia and mild anemia. Peripheral blood smear showed red blood cells to be normocytic normochromic. There was no fragment cell or schistocyte. There is no teardrop cell. There is no rouleaux phenomena. There is no pelger-Huet cell. White blood cell with no blasts. There is is decreased number of the platelet. There is no large platelet. There is no clumping of the platelet.There is no schistocytes or fragment cell. This rule out TTP and DIC. There was hypersegmented neutrophils. This patient low platelet could be due to bone marrow suppression or myelodysplastic syndrome. This patient could be treated with antiplatelet or anticoagulation if needed. Patient to follow-up with DR pierce merida wks recommendations folic acid 1 mg p.o. daily and vitamin B12 1000 mcg p.o. daily. The patient is clinically stable for discharge. Denied chest pain or shortness for breath. Procedure(s): Item Value Date Time White Blood Count 4.3 K/uL L 05/25/24946 Red Blood Count 3.72 MIL/uL L 05/25/24946 Hemoglobin 12.1 g/dL L 05/25/24946 Hematocrit 35.3 % L 05/25/24946 Mean Platelet Volume 11.9 fL H 05/25/24946 Platelet Count 89 K/uL L 05/25/24946 Red Cell Distribution Width 12.5 % 05/25/24946 Mean Corpuscular Hemoglobin Concent 34.3 g/dL 05/25/24946 Mean Corpuscular Hemoglobin 32.5 pg 05/25/24946 Mean Corpuscular Volume 94.9 fL 05/25/24946 Immature Granulocyte % (Auto) 0.5 % 05/25/24946 Neutrophils (%) (Auto) 56.4 % 05/25/24946 Lymphocytes (%) (Auto) 26.5 % 05/25/24946 Eosinophils (%) (Auto) 5.3 % 05/25/24946 Basophils (%) (Auto) 0.9 % 05/25/24946 Monocytes (%) (Auto) 10.4 % 05/25/24946 Neutrophils # (Auto) 2.4 K/uL 05/25/24946 Lymphocytes # (Auto) 1.1 K/uL 05/25/24946 Monocytes # (Auto) 0.5 K/uL 05/25/24946 Eosinophils # (Auto) 0.23 K/uL 05/25/24946 Basophils # (Auto) 0.04 K/uL 05/25/24946 Absolute Immature Granulocyte (auto 0.02 K/uL 05/25/24946 Nucleated Red Blood Cells 0.0 % 05/25/24946 Stool Occult Blood NEGATIVE 05/24/24 1800 Sodium Level 142 mmol/L 05/25/247 Potassium Level 3.4 mmol/L L 05/25/247 Chloride Level 110 mmol/L 05/25/24426 Carbon Dioxide Level 28 mmol/L 05/25/24426 Blood Urea Nitrogen 12 mg/dL 05/25/24426 Creatinine 0.7 mg/dL 05/25/24426 Glomerular Filtration Rate Calc 95 mL/min 05/25/247 Random Glucose 145 mg/dL H 05/25/24426 Total Calcium 7.5 mg/dL L 05/25/24426 Magnesium Level 2.00 mg/dL 05/25/24426 Total Bilirubin 0.3 mg/dL 05/25/24426 Aspartate Amino Transf (AST/SGOT) 20 U/L 05/25/24 042 Alanine Aminotransferase (ALT/SGPT) 24 U/L 05/25/24426 Alkaline Phosphatase 66 U/L 05/25/24426 Total Protein 5.3 g/dL L 05/25/24426 Albumin 2.9 g/dL L 05/25/24 0427 Assessment/Plan: discharged diagnosis: SIRS with organ dysfunction POA PANCYTOPENIA POA ATYPICAL CHEST PAIN Suspected ACS POA Nonobstructive coronary artery disease with 80% apical LAD stenosis and a [id number] vessel distally and hyperdynamic LV with an LVEF of 70% by cardiac catheterization 01/21/2024 (60% diffuse mid LAD stenosis, 40% ostial le ft circumflex stenosis, 40 and 50% proximal and distal RCA stenosis): Hypocalcemia, POA Hypertension Hyperlipidemia CAD Diabetes mellitius type2 Hypothyroidism PLAN: [ ADMISSION DATE: 05/23/2024 DISCHARGE DATE: 05/25/2024 DISPOSITION: HOME CONDITION: STABLE SECURITY SHIFT MANAGER(S): COMPONENT ENGINEER'S, hatchery attendant : Dr Ford FOLLOW UP APPOINTMENT(S): [facility] ONE-WEEK; Dr Ford 2 wks. PROCEDURES: NONE IMAGING (S) REPORT ATTACHED TO SUMMARY : ECHO AND CHEST XRAY MICROBIOLOGY: REPORT ATTACHED TO SUMMARY; NONE ACTIVITY: AD MARYAN HOME MEDICATIONS REMAIN THE SAME CHANGES ON HOME MEDICATIONS WE WILL HOLD LOSARTAN HCTZ BLOOD PRESSURE WE WILL BE MONITORED OUTPATIENT. new medications: Aspirin (Aspirin 81 Mg Ectab) 81 Mg Ectab Cyanocobalamin (Vitamin B-12) (Vitamin B-12) 1,000 Mcg Tablet Folic Acid (Folvite) 1 Mg Tab TEACHING: INSTRUCTED PATIENT TO KEEP A BLOOD PRESSURE LOG AND PRESENT TO COMPONENT ENGINEER'S. THREE DIFFERENT BLOOD PRESSURE DATE FOR TIMES A.M., P.M., NOON EMERGENCY INSTRUCTIONS: THE PATIENT WAS INSTRUCTED TO PRESENT TO THE NEAREST EMERGENCY DEPARTMENT OR CALL 911 SHOULD THEIR SYMPTOMS RETURN OR WORSEN. Home Medications: Active Scripts Losartan/Hydrochlorothiazide (Losartan-Hctz 100-25 mg Tab) 100 Mg-25 Mg Tablet, 0.5 TAB PO DAILY for 30 Days, #30 TAB 0 Refills Prov:CHHAYA ÁLVAREZ 01/21/24 Reported Medications Citalopram Hydrobromide (Citalopram HBr) 40 Mg Tablet, 1 TAB PO DAILY for 30 Days, #30 TAB 0 Refills 01/20/24 Levothyroxine Sodium (Levothyroxine) 75 Mcg Capsule, 1 TAB PO DAILY for 30 Days, #30 CAP 0 Refills 01/20/24 Isosorbide Mononitrate (Isosorbide Mononitrate ER) 60 Mg Tab.er.24h, 1 TAB PO DAILY for 30 Days, #30 TAB 0 Refills 01/20/24 Rosuvastatin Calcium (Rosuvastatin Calcium) 10 Mg Tablet, 20 MG PO DAILY, TAB 01/20/24 Tamsulosin HCl (Flomax) 0.4 Mg Cap.er.24h, 1 CAP PO DAILY for 30 Days, #30 CAP 0 Refills 01/20/24 Discontinued Reported Medications Spironolactone (Spironolactone) 25 Mg Tablet, 12.5 MG PO DAILY, TAB 05/24/24 New Medications: Aspirin (Aspirin 81 Mg Ectab) 81 Mg Ectab 81 MG PO DAILY for 30 Days, #30 TAB.EC Cyanocobalamin (Vitamin B-12) (Vitamin B-12) 1,000 Mcg Tablet 1000 MCG PO DAILY for 30 Days, #30 TAB Folic Acid (Folvite) 1 Mg Tab 1 MG PO DAILY for 30 Days, #30 TAB Continued Medications: Citalopram Hydrobromide (Citalopram HBr) 40 Mg Tablet 1 TAB PO DAILY for 30 Days, #30 TAB 0 Refills Isosorbide Mononitrate (Isosorbide Mononitrate ER) 60 Mg Tab.er.24h 1 TAB PO DAILY for 30 Days, #30 TAB 0 Refills Levothyroxine Sodium (Levothyroxine) 75 Mcg Capsule 1 TAB PO DAILY for 30 Days, #30 CAP 0 Refills Rosuvastatin Calcium (Rosuvastatin Calcium) 10 Mg Tablet 20 MG PO DAILY, TAB Tamsulosin HCl (Flomax) 0.4 Mg Cap.er.24h 1 CAP PO DAILY for 30 Days, #30 CAP 0 Refills Discontinued Medications: Losartan/Hydrochlorothiazide (Losartan-Hctz 100-25 mg Tab) 100 Mg-25 Mg Tablet 0.5 TAB PO DAILY for 30 Days, #30 TAB 0 Refills Time spent arranging discharge: 31-60 minutes ATTESTATION BY PHYSICIAN I have seen and examined the patient. I reviewed the documentation, medical decision making, and treatment plan as noted by the mid-level provider above. I agree with the findings and plan of care. CARLIN GONZALEZ MD, ELIZABETH NP May 25, 2024 15:03
--- NOTE | 2024-05-25 20:04 | HMCSR ---
APPROVED REPORT EXAM: Two-dimensional and M-mode echocardiogram with Doppler and color Doppler. INDICATION ICD: Chest Pain 2D Dimensions RVDd3.9 cmLVEF(%)59.4 (>50%)LVEF(%, simp.)62 % IVSd0.7 (0.7-1.1cm)FS(%)32 % LVDd5.1 (3.8-5.6cm)LA (2D)4.6 (1.6-4.0cm) PWd0.8 (0.7-1.1cm)Ao Root(2D)3.2 (2.0-3.7cm) IVSs0.9 cmLVOT diam2.1 (1.8-2.4cm) LVDs3.5 (2.5-4.0cm) PWs1.4 cm Deformation Strain Apical 4-20.0 % Apical 2-14.0 % Apical 3-8.0 % Global Strain-14.0 % M-Mode Dimensions EPSS0.7 cm LA (MM)5.0 (1.6-4.0cm) Ao Root(MM)3.5 (2.0-3.7cm) Aortic Valve AoV Vmax1.6 m/Ross Peak GR10.1 mmHgLVOT Vmax1.3 m/s AoV VTI0.4 mAo Mean GR5.5 mmHgLVOT VTI0.31 m JEFF (VMAX)2.7 cm2Al P1/2T920 msAVA (VTI) 2.7 cm2 Mitral Valve MV E Vmax92.1 cm/sDECEL Ncip049 ms MV A Vmax94.7 cm/sP 1/2 T58 ms E/A ratio1.0MVA (PHT)3.8 cm2 TDI E/E' Zfdfoe01.5E/E' Iozshhy26.2 Medial E' Peak V8.00 cm/sLateral E' Peak V7.00 cm/s Tricuspid Valve RAP (EST) 15 qoDoYUML71.0 mmHg Left Ventricle The left ventricle is normal size. GLS -14.0% There is normal LV segmental wall motion. There is norm al left ventricular wall thickness. The LVEF is 55-60%. The left ventricular diastolic function is no rmal. Right Ventricle The right ventricle is normal size. The right ventricular systolic function is normal. Atria The left atrium size is normal. The right atrium size is normal. Aortic Valve The aortic valve is normal in structure. Mild aortic regurgitation is present. There is no aortic aline vular stenosis. Mitral Valve The mitral valve is normal in structure. There is trace mitral valve regurgitation noted. There is no mitral valve stenosis. Tricuspid Valve The tricuspid valve is normal in structure. There is no tricuspid valve regurgitation noted. Pulmonic Valve The pulmonary valve is normal in structure. There is no pulmonic valvular regurgitation. Great Vessels The aortic root is normal in size. IVC is dilated and collapses <50% with inspiration. Pericardium There is no pericardial effusion. Other Information Quality : Technically difficult study due to body habitusRhythm : NSR Conclusion The LVEF is 55-60%. The left ventricular diastolic function is normal. Mild aortic regurgitation. Trace mitral valve regurgitation.
== END 2024-05-25 16:10 | disposition home or self-care (01) ==
LOC: EDH 20:29 → INTOOBSV 22:01 → EDHIP 22:01 → 3AH 22:44
PROVIDERS: ADMIT Internal Medicine; ATTEND Internal Medicine
DX: D61.818 Other pancytopenia (principal); R65.11 Systemic inflammatory response syndrome (SIRS) of non-infectious origin with acute organ dysfunction; R07.89 Other chest pain; E83.51 Hypocalcemia; I25.110 Atherosclerotic heart disease of native coronary artery with unstable angina pectoris; E11.9 Type 2 diabetes mellitus without complications; E03.9 Hypothyroidism, unspecified; I11.9 Hypertensive heart disease without heart failure; E78.5 Hyperlipidemia, unspecified; I25.2 Old myocardial infarction; I45.10 Unspecified right bundle-branch block; G47.30 Sleep apnea, unspecified; Z95.5 Presence of coronary angioplasty implant and graft; Z87.891 Personal history of nicotine dependence; Z79.82 Long term (current) use of aspirin; Z79.899 Other long term (current) drug therapy
CPT/HCPCS: 99285; 82550; 84484 ×4; 80048 ×2; 83880; 85025 ×4; 81003; 36415 ×3; 71045; 96360; 93005; 83036; 84443; 83735 ×2; 84100; 80061; 82948 ×6; 82270; 93306; 93356; 80053; J7030; G0378 ×2